=== PATIENT | male | born 1940 | race Caucasian/White ===

== ENCOUNTER → 2019-09-12 10:21 | Outpatient (BNVA) | payer OTHER, SELFPAY | PROVIDERS: Family Provider Internal Medicine; PCP Internal Medicine; Visit Provider Dermatology | DX: B35.1 Tinea unguium (principal); B35.3 Tinea pedis; L57.0 Actinic keratosis; L82.1 Other seborrheic keratosis; Z12.83 Encounter for screening for malignant neoplasm of skin | CPT/HCPCS: 17000; 17003; 99203; 99204 ==

== ENCOUNTER → 2019-10-24 08:52 | Outpatient (BNVA) | payer OTHER, SELFPAY | PROVIDERS: Family Provider Internal Medicine; PCP Internal Medicine; Visit Provider Dermatology | DX: B35.1 Tinea unguium (principal); L27.1 Localized skin eruption due to drugs and medicaments taken internally | CPT/HCPCS: 99213 ==

== ENCOUNTER 2022-02-01 20:31 | Emergency (ER) | payer MEDICARE, SELFPAY ==
[2022-02-01 20:33] VITALS: BP 181/108; PULSE 79; RESP 18; TEMP 37.2; O2SAT 96; BMI 25.0
--- NOTE | 2022-02-01 20:51 | CTR_ITS ---
PROCEDURE INFORMATION: Exam: CT Abdomen And Pelvis Without Contrast Exam date and time: 02/01/2022 10:31 PM Age: 81 years old Clinical indication: Abdominal pain; Prior surgery; Surgery date: 6+ months; Surgery type: Hernia repair; Additional info: Flank pain left TECHNIQUE: Imaging protocol: Computed tomography of the abdomen and pelvis without contrast. Radiation optimization: All CT scans at this facility use at least one of these dose optimization techniques: automated exposure control; mA and/or kV adjustment per patient size (includes targeted exams where dose is matched to clinical indication); or iterative reconstruction. COMPARISON: No relevant prior studies available. RADIATION DOSE METRICS: Total DLP (mGy-cm): 522.61 FINDINGS: Liver: Normal. No mass. Gallbladder and bile ducts: Normal. No calcified stones. No ductal dilation. Pancreas: Normal. No ductal dilation. Spleen: Normal. No splenomegaly. Adrenal glands: Normal. No mass. Kidneys and ureters: There are strandy opacity seen in the perinephric fascia bilaterally that likely represents chronic scarring. Prominent strandy opacities are seen in the right perinephric fascia and superimposed inflammatory changes and pyelonephritis cannot be entirely excluded. There are bilateral hypoattenuation cystic mass seen within the kidneys, the largest is seen in the lateral aspect of the right kidney measuring 2.6 cm. There is hydronephrosis and hydroureter seen on the right with a partially obstructing mid right ureteral calculus present measuring 2.9 mm. Stomach and bowel: Few diverticula are seen on the sigmoid colon. There are no inflammatory changes seen to suggest diverticulitis. Appendix: The appendix is visualized and is normal in configuration. Intraperitoneal space: Unremarkable. No free air. No significant fluid collection. Vasculature: Unremarkable. No abdominal aortic aneurysm. Lymph nodes: Unremarkable. No enlarged lymph nodes. Urinary bladder: Unremarkable as visualized. Reproductive: Unremarkable as visualized. Bones/joints: Unremarkable. No acute fracture. Soft tissues: Small bilateral inguinal hernias are seen containing fat. Bilateral irregular soft tissue attenuation is seen within the properitoneal fat adjacent to the inguinal canals that may represent postoperative scarring. CT/CT kidney stone 54090 IMPRESSION: 1. Partially obstructing 2.9 mm mid right ureteral calculus. 2. Bilateral simple renal cysts, the largest seen on the right measuring 2.6 cm. 3. Normal appendix 4. Mild diverticulosis of the sigmoid colon. 5. Small bilateral inguinal hernias containing fat. Patchy soft tissue attenuation seen in the properitoneal fat adjacent to the little canals possibly representing postoperative scarring. COMMENTS: Consistent with the [employer]'s Incidental Findings Committee white paper (J Am Talisha Radiol 2018): Any incidental renal lesion less than 1 cm or classified as too small to characterize, or any incidental cystic renal lesion characterized as simple-appearing, is likely benign. No follow-up imaging is recommended for these lesions per consensus recommendations based on imaging criteria.
[2022-02-01 21:26] VITALS: BP 191/106; PULSE 71; RESP 18; O2SAT 97
[2022-02-01] MEDS: amlodipine 10 mg Tablet PO (21:30)
[2022-02-01] MEDS: labetalol 5 mg/mL SDV 20mL 10 MG IVP ×2 (21:32→23:11)
[2022-02-01 21:34] LABS: Basophils % 0.1 %; Hematocrit 44.9 % (42.0-52.0); Lymphocytes % 7.6 %; Mean Corpuscular HGB Conc 33.4 g/dL (30.0-36.0); Mean Corpuscular Hemoglobin 31.5 pg (28.0-34.0); Mean Corpuscular Volume 94.3 fl (80-94); Mean Platelet Volume 12.2 fL (7.4-10.4); Monocytes # 0.8 10^3/uL (0.2-0.9); Neutrophils # 11.69 10^3/uL (1.8-7.7); Nucleated Red Blood Cells % 0 %; Platelet Count 180 10^3/cmm (130-400); Red Blood Count 4.76 10^6/uL (4.1-5.3); Red Cell Distribution Width 12.8 % (12.1-15.1); White Blood Count 13.6 10^3/uL (4.0-10.0)
[2022-02-01 21:52] LABS: Alanine Aminotransferase 9 U/L (0-41); Alkaline Phosphatase 80 U/L (40-130); Anion Gap 14.6 (5-19); Aspartate Amino Transferase 16 U/L (0-40); Blood Urea Nitrogen 21 mg/dL (8-23); Calcium 8.7 mg/dL (8.5-10.5); Carbon Dioxide 22 mmol/L (22-29); Chloride 101 mmol/L (98-107); Globulin 2.4 g/dL (1.3-4.6); Glucose 116 mg/dL (65-115); Lipase 12 U/L (13-60); Osmolality Calculated 282 mOsm/kg (285-295); Potassium 3.6 mmol/L (3.5-5.1); Sodium 134 mmol/L (136-145); Total Bilirubin 0.5 mg/dL (0.15-1.2); Total Protein 6.4 g/dL (6.6-8.7)
--- NOTE | 2022-02-01 22:26 | ECG_ITS ---
[facility] Test Date: 2022-02-01 Pat Name: Stuart Horton Department: Room: Gender: Male Client Services Director: : 1940 Requested By: Omer Hendricks Order Number: [id number] Daren MD: Hortencia Capone M.D. Measurements Intervals [place] Rate: 62 P: 16 CA: 136 QRS: 48 QRSD: 82 T: 51 QT: 413 QTc: 421 Interpretive Statements SINUS RHYTHM No previous ECG available for comparison Electronically Signed On 02-02-2022 5:49:25 BOAT FINISHER by Hortencia Capone M.D. [id number]
[2022-02-01] MEDS: enalaprilat 1.25 mg/mL Inj IVP (23:11)
[2022-02-01 23:12] VITALS: BP 189/107; PULSE 69; RESP 18; O2SAT 98
[2022-02-01 23:18] LABS: Add Urine Microscopic? NO; Charge for UA Resulting for Rev
[2022-02-01 23:29] LABS: Urine Appearance Clear (CLEAR); Urine Color Yellow (Yellow); pH Urine 7 (5-7)
[2022-02-01 23:30] LABS: Bilirubin Urine Neg (Negative); Blood Urine Neg (Negative); Glucose Urine UA Norm (Normal); Ketones Urine 2+ (Negative); Leukocyte Esterase Urine Negative (Negative); Nitrate Urine Negative (Negative); Protein Urine Neg (Negative); Urobilinogen Urine Norm (Negative)
[2022-02-02 00:44] VITALS: BP 164/87; PULSE 72; RESP 17; TEMP 36.7; O2SAT 97
--- NOTE | 2022-02-02 14:45 | W.ED.MALEGU ---
HPI - Male Genitourinary General: Chief complaint: Urogenital-Male Stated complaint: LOWER FLANK PAIN Time Seen by Provider: 02/01/22 20:48 Source: patient History of Present Illness: 81 male with right lower back and flank pain that he believes could be a kidney stone. he presented ambulatory and waited in the waiting room for quite some time before going home before seen. after getting home, his pain was somewhat worse. he checked is blood pressure and it was quite high (over 200 systolic), which worried him so a family member called an ambulance. he was given 30mg of IV toradol en route. MD Complaint: other Onset (ago): hour(s) Duration: constant and improved Location: right flank Severity: similar to previous episodes Quality: aching and stabbing Relieving factors: medication Exacerbating factors: none Associated symptoms: Reports nausea; Deny discharge, dysuria, fevers/chills, rash, urinary incontinence or vomiting Review of Systems Const: Denies: fever(s) Card: Denies: chest pain Resp: Denies: dyspnea or non-productive cough GI: Reports: nausea; Denies: vomiting : Reports: flank pain; Denies: dysuria or urinary incontinence Musc: Reports: back pain Skin/Breast: Denies: rash Neuro: Denies: headache(s) PFS ED PFSH: Medical History Neuropathy Family History Other CAD (coronary artery disease) Denies family history of Diabetes Cancer Hypertension Social History Smoking and tobacco status: never smoked Alcohol intake: never History of recent travel: No Physical Exam Const: COMMON NORMALS: no acute distress GENERAL APPEARANCE: cooperative; not ill appearing and not frail appearing HENMT: COMMON NORMALS: normocephalic, atraumatic and Normal external nose present HEAD & SCALP: normocephalic and atraumatic FACE & SINUS: normal facial exam and face symmetric NOSE: Normal external nose present Eye: COMMON NORMALS: Equal, round and reactive pupils present and EOMs intact bilaterally PUPIL: Yes Equal, round and reactive pupils present Neck/C-Spine: GENERAL: Yes trachea midline Chest: CHEST: Yes Symmetrical chest wall rise Resp: COMMON NORMALS: normal respiratory effort, No retractions, No use of accessory muscles and clear to auscultation bilaterally AUSCULTATION: clear to auscultation bilaterally Cardio: COMMON NORMALS: regular rate and regular rhythm RATE: regular rate RHYTHM: regular rhythm GI: COMMON NORMALS: Normal to inspection, nondistended, normoactive bowel sounds present : BLADDER/KIDNEY EXAM: Yes CVA tenderness on the right Back/Pelvis: GENERAL BACK: Yes CVA tenderness Extremity: COMMON NORMALS: no pedal edema Neuro: GOMEZ COMA SCALE: document GCS findings Gomez coma scale eye opening: Spontaneous Gomez coma scale verbal response: Orientated [place] coma scale motor response: Obey commands [place] coma scale total score: 15 SENSORY EXAM: Yes extremities (intact) Psych: COMMON NORMALS: speech normal SPEECH: Yes normal speech Skin: COMMON NORMALS: no rashes or lesions noted GENERAL SKIN EXAM: no rashes or lesions noted Course Vital Signs: Vital signs: Vital Signs Temperature 98.1 F 02/02/22 00:44 Pulse Rate 72 02/02/22 00:44 Respiratory Rate 17 02/02/22 00:44 Blood Pressure 164/87 02/02/22 00:44 Pulse Oximetry 97 02/02/22 00:44 Oxygen Delivery Me thod 02/01/22 23:12 MDM - Male Medical Decision Making pain is nearly resolved after toradol given in the ambulance. he is still quite hypertensive on presentation. he is given labetalol, vasotec and oral amlodipine for control of bp, which is improved. ekg is normal. mild leukocytosis. bmp is not remarkable. CT shows 2.9mm stone mid ureter with hydronephrosis but not completely obstructed. no uti. will allow home with pain medication, flomax which may help the bp as well as amlodipine. strict return precautions given. Lab Data 02/01/22 21:25 02/01/22 21:25 Radiology Impressions Abdomen/Pelvis CT 02/01/22 20:51 IMPRESSION: 1. Partially obstructing 2.9 mm mid right ureteral calculus. 2. Bilateral simple renal cysts, the largest seen on the right measuring 2.6 cm. 3. Normal appendix 4. Mild diverticulosis of the sigmoid colon. 5. Small bilateral inguinal hernias containing fat. Patchy soft tissue attenuation seen in the properitoneal fat adjacent to the little canals possibly representing postoperative scarring. COMMENTS: Consistent with the [employer]'s Incidental Findings Committee white paper (J Am Talisha Radiol 2018): Any incidental renal lesion less than 1 cm or classified as too small to characterize, or any incidental cystic renal lesion characterized as simple-appearing, is likely benign. No follow-up imaging is recommended for these lesions per consensus recommendations based on imaging criteria. Laboratory Results WBC 13.6 10^3/uL (4.0-10.0) H 02/01/22 21: RBC 4.76 10^6/uL (4.1-5.3) 02/01/22 21: Hgb 15.0 g/dL (11.7-16.6) 02/01/22: Hct 44.9 % (42.0-52.0) 02/01/22: MCV 94.3 fl (80-94) H 02/01/22: MCH 31.5 pg (28.0-34.0) 02/01/22: MCHC 33.4 g/dL (30.0-36.0) 02/01/22 21: RDW 12.8 % (12.1-15.1) 02/01/22: Plt Count 180 10^3/cmm (130-400) 02/01/22 21: MPV 12.2 fL (7.4-10.4) H 02/01/22 21: Neut % (Auto) 86.0 % 02/01/22: Lymph % (Auto) 7.6 % 02/01/22: [place] % (Auto) 6.0 % 02/01/22 21: Eos % (Auto) 0.0 % 02/01/22: Baso % (Auto) 0.1 % 02/01/22: Neut # (Auto) 11.69 10^3/uL (1.8-7.7) H 02/01/22 21: Lymph # (Auto) 1.0 10^3/uL (0.8-4.8) 02/01/22 21: [place] # (Auto) 0.8 10^3/uL (0.2-0.9) 02/01/22 21: Eos # (Auto) 0.0 10^3/uL (0.0-0.8) 02/01/22 21:25 Baso # (Auto) 0.0 10^3/uL (0.0-0.1) 02/01/22 21:25 Nucleated RBC % (auto) 0 % 02/01/22 21: Nucleated RBCs # 0.0 /100WBC 02/01/22 21:25 Sodium 134 mmol/L (136-145) L 02/01/22 21:25 Potassium 3.6 mmol/L (3.5-5.1) 02/01/22 21: Chloride 101 mmol/L (98-107) 02/01/22: Carbon Dioxide 22 mmol/L (22-29) 02/01/22: Anion Gap 14.6 (5-19) 02/01/22 21:25 BUN 21 mg/dL (8-23) 02/01/22 21: Creatinine 1.2 mg/dL (0.7-1.2) 02/01/22 21: GFR Calculation Not Reportable 02/01/22 21: Glucose 116 mg/dL (65-115) H 02/01/22 21:25 Calculated Osmolality 282 mOsm/kg (285-295) L 02/01/22: Calcium 8.7 mg/dL (8.5-10.5) 02/01/22 21:25 Total Bilirubin 0.5 mg/dL (0.15-1.2) 02/01/22 21:25 AST 16 U/L (0-40) 02/01/22 21:25 ALT 9 U/L (0-41) 02/01/22 21:25 Alkaline Phosphatase 80 U/L (40-130) 02/01/22 21:25 C-Reactive Protein 3.0 mg/L (0.0-4.9) 02/01/22:25 Total Protein 6.4 g/dL (6.6-8.7) L 02/01/22 21:25 Albumin 4.0 g/dL (3.5-5.2) 02/01/22 21:25 Globulin 2.4 g/dL (1.3-4.6) 02/01/22 21:25 Lipase 12 U/L (13-60) L 02/01/22 21:25 Urine Color Yellow (Yellow) 02/01/22 23:15 Urine Appearance Clear (CLEAR) 02/01/22 23:15 Urine pH 7 (5-7) 02/01/22 23:15 Ur Specific [place] 1.010 (1.005-1.030) 02/01/22 23:15 Urine Protein Neg (Negative) 02/01/22 23:15 Urine Glucose (UA) Norm (Normal) 02/01/22 23:15 Urine Ketones 2+ (Negative) H 02/01/22 23:15 Urine Blood Neg (Negative) 02/01/22 23:15 Urine Nitrate Negative (Negative) 02/01/22 23:15 Urine Bilirubin Neg (Negative) 02/01/22 23:15 Urine Urobilinogen Norm mg/dL (Negative) 02/01/22 23:15 Ur Leukocyte Esterase Negative (Negative) 02/01/22 23:15 Discharge Plan Discharge Patient Disposition: Home Clinical Impression: Ureterolithiasis, Hypertension Condition: Stable Prescriptions: New Flomax 0.4 mg capsule 0.4 mg PO DAILY Qty: 30 0RF amlodipine 10 mg tablet 10 mg PO DAILY Qty: 30 0RF Percocet 7.5-325 mg tablet 1 tab PO Q8H PRN (Reason: pain) Qty: 10 0RF No Action multivitamin Capsule 1 cap PO DAILY ascorbic acid (vitamin C) [Vitamin C] 500 mg capsule, extended release 500 mg PO DAILY ketoconazole 2 % cream 1 applic TOPICAL BID Qty: 60 2RF Rx Instructions: Apply twice daily to entire foot and between the toes for 4 weeks and as needed for flares ciclopirox 8 % solution 1 applic topical DAILY Qty: 6.6 6RF Rx Instructions: Apply to nails daily. Do not wash nails for 8hr post application;remove w/alcohol every 7 days triamcinolone acetonide 0.1 % ointment 1 applic TOPICAL BID Qty: 80 0RF Rx Instructions: Apply twice daily to affected area on left thigh no more than 2 weeks/month Discharge Orders: Discharge ED (Routine); Ordered 02/01/22 Ordered By: Omer Salinas Referrals: Jesus Iqbal MD [Physician] - 4-7 days Scotty Umana DO [Primary Care Provider] - 1-3 days Patient Instructions: Kidney Stones (ED), Hypertension (ED), Opioid Safety, Pain Management Activity Restrictions/Additional Instructions: Check your blood pressure twice daily. Report numbers to your physician. They will want to see you this coming week. Call for an appointment. Pain medication as directed for kidney stone related pain. Take the tamsulosin you were prescribed to help pass the stone, it will help your blood pressure as well. Return for fever, vomiting liquids or medications, worsening pain despite treatment with pain medication, other concerning symptoms. See urology in follow-up. Coding Level of Care Code ED Manager Utilization Management for Sumanth Wolfe
--- NOTE | 2022-02-03 10:53 | DCPLANNER ---
Addendum entered by Autumn Espinoza 02/19/22 13:40: This appointment was cancelled Addendum entered by Autumn Espinoza 02/04/22 10:16: Patient has a follow up appointment scheduled for Friday, February 11, 2022 at 4:[address] Iqbal at urology. Clinic will call patient with appointment information. Original Note: environmental health and safety manager had message to schedule a follow up appointment for patient with urology. environmental health and safety manager sent patients information to the front office staff at urology. patients information will be printed and reviewed. Clinic will call patient with appointment information.
== END 2022-02-02 00:46 | disposition home or self-care (01) ==
PROVIDERS: Emergency Provider Emergency Medicine; PCP Internal Medicine
DX: N20.1 Calculus of ureter (principal); I10 Essential (primary) hypertension
CPT/HCPCS: 74176; 80053; 81003; 83690; 85025; 86140; 93005; 96374; 96375; 96376; 99285; J3490

== ENCOUNTER 2022-02-21 20:33 | Emergency (ER) | payer MEDICARE, SELFPAY ==
[2022-02-21 20:46] VITALS: BP 161/92; PULSE 95; RESP 16; TEMP 36.7; O2SAT 99; BMI 25.7
--- NOTE | 2022-02-21 21:48 | ED_ITS ---
HPI - Male Genitourinary General: Chief complaint: Urogenital-Male Stated complaint: catheter problems Time Seen by Provider: 02/21/22 21:39 Source: patient Mode of arrival: EMS Limitations: no limitations History of Present Illness: See nursing assessment. Patient with complaints of difficulty getting urine out through his Up catheter today. Patient states he was having to force himself to get urine out. However, in route to the hospital by EMS, urine started flowing more freely. States he did pass a blood clot earlier through his Up catheter. Patient had kidney stone removal and placement of indwelling Up catheter yesterday in [place]. His urologist is aware of what is going on today. Patient has an appoint with his urologist on Wednesday in clinic. Patient states he feels much better now. Denies any fever. Denies any flank pain or abdominal pain. Associated symptoms: Reports hematuria; Deny nausea or vomiting Review of Systems Const: Denies: fever(s) or chills Eyes: Denies: change in vision ENMT: Denies: throat pain Card: Denies: chest pain or palpitations Resp: Denies: dyspnea or wheezing GI: Denies: abdominal pain, nausea or vomiting : Reports: hematuria; Denies: flank pain Musc: Denies: neck pain or back pain Skin/Breast: Denies: rash or pruritus Neuro: Denies: headache(s) or numbness in extremities Psych: Denies: anxiety Mike/Lymph: Denies: enlarged lymph nodes [facility] ED PFSH: Medical History Neuropathy Family History Other CAD (coronary artery disease) Denies family history of Diabetes Cancer Hypertension Social History Smoking and tobacco status: never smoked Alcohol intake: never History of recent travel: No Supplemental [facility] Information: Kidney stone removal yesterday. Physical Exam Const: COMMON NORMALS: no acute distress, patient oriented x3, no limitations and well nourished GENERAL APPEARANCE: cooperative HENMT: COMMON NORMALS: normocephalic and atraumatic HEAD & SCALP: normocephalic and atraumatic FACE & SINUS: normal facial exam Eye: COMMON NORMALS: EOMs intact bilaterally Neck/C-Spine: COMMON NORMALS: full ROM, no lymphadenopathy, supple and no meningeal signs GENERAL: Yes normal visual inspection Lymph: LYMPHATIC: no lymphadenopathy noted Chest: COMMONS NORMALS: normal inspection of the chest and normal palpation of entire chest wall CHEST: No Ecchymosis present and No rash Resp: COMMON NORMALS: normal respiratory effort, No retractions and clear to auscultation bilaterally EFFORT & INSPECTION: No respiratory distress AUSCULTATION: clear to auscultation bilaterally Cardio: COMMON NORMALS: regular rate, regular rhythm and Peripheral pulses 2+ throughout JUGULAR VENOUS DISTENTION: no JVD RATE: regular rate RHYTHM: regular rhythm PERIPHERAL PULSES: Peripheral pulses 2+ throughout GI: COMMON NORMALS: Normal to inspection, nondistended, normoactive bowel sounds present and non-tender : OTHER: Up catheter in proper position. Catheter slides and penis without any difficulty. Fairly clear blood-tinged urine in catheter tubing. Good urine output now. Extremity: COMMON NORMALS: normal to inspection, full ROM and capillary refill normal Neuro: COMMON NORMALS: patient oriented x3, CN's II-XII intact bilaterally, no focal motor deficits and no sensory deficits noted MENINGEAL SIGNS: Yes no meningeal signs Psych: COMMON NORMALS: mental status grossly normal and Normal thought process present THOUGHT PROCESS: Normal thought process present Skin: COMMON NORMALS: no rashes or lesions noted and no wounds GENERAL SKIN EXAM: no rashes or lesions noted Course Vital Signs: Vital signs: Vital Signs Temperature 98.0 F 02/21/22 20:46 Pulse Rate 95 02/21/22 20:46 Respiratory Rate 16 02/21/22 20:46 Blood Pressure 161/92 02/21/22 20:46 Pulse Oximetry 99 02/21/22 20:46 Oxygen Delivery Me thod 02/21/22 20:46 MDM - Male Medical Decision Making Blood clots occluding proximal Up catheter Nurse will flush catheter again here. Catheter appears to be functioning well now. Patient states the anchor to the Up catheter was in a strange position and he took it off yesterday. He is not sure if the absence of the anchor or th e position of the anchor made the situation worse. He is requesting that the anchor be replaced today. Nurse stated that the catheter did not flush well. He stated the patient needs his catheter replaced. Patient is okay with catheter replacement. Discharge Plan Discharge Patient Disposition: Home Clinical Impression: Up catheter problem Qualifiers: Encounter type: initial encounter Qualified Code(s): T83.9XXA - Unspecified com plication of genitourinary prosthetic device, implant and graft, initial encounter Condition: Stable Prescriptions: No Action multivitamin Capsule 1 cap PO DAILY ascorbic acid (vitamin C) [Vitamin C] 500 mg capsule, extended release 500 mg PO DAILY ketoconazole 2 % cream 1 applic TOPICAL BID Qty: 60 2RF Rx Instructions: Apply twice daily to entire foot and between the toes for 4 weeks and as needed for flares ciclopirox 8 % solution 1 applic topical DAILY Qty: 6.6 6RF Rx Instructions: Apply to nails daily. Do not wash nails for 8hr post application;remove w/alcohol every 7 days triamcinolone acetonide 0.1 % ointment 1 applic TOPICAL BID Qty: 80 0RF Rx Instructions: Apply twice daily to affected area on left thigh no more than 2 weeks/month Flomax 0.4 mg capsule 0.4 mg PO DAILY Qty: 30 0RF amlodipine 10 mg tablet 10 mg PO DAILY Qty: 30 0RF Percocet 7.5-325 mg tablet 1 tab PO Q8H PRN (Reason: pain) Qty: 10 0RF Discharge Orders: Discharge ED (Routine); Ordered 02/21/22 Ordered By: Al Silva Referrals: Scotty Umana DO [Primary Care Provider] - Discharge Activity: Increase activity as tolerated Patient Instructions: Up Catheter Care, Opioid Safety, Pain Management Activity Restrictions/Additional Instructions: Drink plenty water to keep the catheter flushed out. Follow-up with urologist next week as scheduled. Coding Level of Care Code ED Title I Assistant for Sumanth Wolfe History Comprehensive Exam Comprehensive Medical Decision Making Moderate Complexity
--- NOTE | 2022-02-21 22:42 | PC.NURSE ---
Pt.'s existing catheter not draining properly. Catheter removed. Inside the tip of the catheter was a long strand of tissue with a small clot , blocking the tube.
== END 2022-02-21 22:47 | disposition home or self-care (01) ==
PROVIDERS: Emergency Provider Family Medicine; PCP Internal Medicine
DX: T83.9XXA Unspecified complication of genitourinary prosthetic device, implant and graft, initial encounter (principal); Y73.8 Miscellaneous gastroenterology and urology devices associated with adverse incidents, not elsewhere classified
CPT/HCPCS: 51702; 99283

== ENCOUNTER → 2022-08-06 13:41 | Outpatient (BNVA) | payer MEDICARE, SELFPAY | PROVIDERS: PCP Internal Medicine; Visit Provider Dermatology | DX: B35.1 Tinea unguium (principal); L57.0 Actinic keratosis; L82.1 Other seborrheic keratosis; D18.01 Hemangioma of skin and subcutaneous tissue | CPT/HCPCS: 17000; 17003; 99213 ==

== ENCOUNTER 2023-02-17 18:31 | Inpatient (IN) | payer MEDICARE, SELFPAY ==
[2023-02-17 18:36] VITALS: BP 162/84; PULSE 74; RESP 18; TEMP 36.7; O2SAT 96; BMI 27.4
[2023-02-17 18:44] VITALS: BP 162/84; PULSE 74; RESP 18; O2SAT 96
--- NOTE | 2023-02-17 18:44 | CTR_ITS ---
PROCEDURE INFORMATION: Exam: CT Head Without Contrast Exam date and time: 02/17/2023 6:52 PM Age: 82 years old Clinical indication: Altered mental status/memory loss; Additional info: AMS TECHNIQUE: Imaging protocol: Computed tomography of the head without contrast. Radiation optimization: All CT scans at this facility use at least one of these dose optimization techniques: automated exposure control; mA and/or kV adjustment per patient size (includes targeted exams where dose is matched to clinical indication); or iterative reconstruction. COMPARISON: No relevant prior studies available. RADIATION DOSE METRICS: Total DLP (mGy-cm): 1170 FINDINGS: Brain: Moderate diffuse white matter disease likely reflecting chronic microvascular ischemic changes. Cerebral ventricles: No ventriculomegaly. Paranasal sinuses: Visualized sinuses are unremarkable. No fluid levels. Mastoid air cells: Visualized mastoid air cells are well aerated. Bones/joints: Unremarkable. No acute fracture. Soft tissues: Unremarkable. CT/CT head wo con* [id number] IMPRESSION: Negative for intracranial hemorrhage or mass effect.
--- NOTE | 2023-02-17 18:46 | ED_ITS ---
HPI - Skin/Abscess/Foreign Bdy 2 General: Chief complaint: ER Hold Stated complaint: AMS Time Seen by Provider: 02/17/23 18:36 History of Present Illness: 82-year-old male presents emergency depa rtment via EMS personnel with complaints of change in mental status. He was seen here yesterday and this emergency department and was evaluated with laboratory and discharged home at the request of the patient. He returns today with increased confusion he was recently started on Augmentin by his primary care provider and is now taken 5 to 6 days of the Augmentin antibiotic regimen. The family members state that he developed a rash and worsening mental status changes. He does intermittently answer questions appropriately. The family member states that he is not his normal self. He denies chest pain or shortness of breath. He did receive evaluation yesterday in the emergency department to include chest x-ray, influenza screen, COVID screen, strep screen, and a monotest which were all negative. His urinalysis yesterday was negative for infection at that time. Blood cultures were also obtained on his ER visit on 02/16/23. Review of Systems 2 General: Reports: 10 or more systems reviewed and unremarkable except in HPI and below Skin/Breast: Reports: rash Neuro: Reports: confusion PFSH ED 2 PFSH: Medical History Neuropathy Family History Other CAD (coronary artery disease) Denies family history of Diabetes Cancer Hypertension Social History Smoking and tobacco/nicotine status: never used tobacco/nicotine Alcohol intake: never Substance/Drug Use: never Physical Exam 2 Narrative: EXAM NARRATIVE: Constitutional: the patient appears well nourished and with normal development. Vital signs reviewed as documented. GCS 15 HENMT: Normocephalic, atraumatic. Extermal ears with normal appearance without drainage. Nose without drainage, normal appearance. Mucus membranes moist. Neck is supple, No jugular venous distension, trachea is midline, no appreciable carotid bruits. No lymphadenopathy. No meningeal signs. Flexion, extension and lateral rotation is without pain. Eyes: Pupils are equal, round, reactive to light and accommodation. No scleral icterus. Extra-ocular movement are intact. Thorax is symmetrical and with equal rise and fall with respirations. Resp: Lungs are clear to auscultation. No wheezes, rales, crackles or ronchi at present. Cardio: Regular rate and rhythm. Positive S1, S2. No appreciable murmurs, rubs or gallops. GI: Abdominal exam reveals normal bowel sounds to all quadrants. No organomegaly. No obvious palpable masses noted. No hepatomegally appreciated. Soft, nontender to palpation. Extremity: Extremities are non-edematous and both femoral and pedal pulses are 2+ and equal bilaterally. Moves all extremities well, sensation in all extremities. Neuro: Alert and oriented x4, person, place, time and situation. Cranial nerves II through XII are grossly intact, there is no focal neurological deficits that I can appreciate at present. His mentation does appear to be slightly delayed and when asked complex 2 and three-step questions he has difficulty answering. Motor strength in the upper and lower extremities are equal and bilateral 5/5. Psych: Cooperative, calm, normal thought process, appropriate judgment. Skin: No lesions, generalized erythematous rash to his entire body. N Back: Symmetrical, no obvious deformity, No CVA tenderness Course 2 Vital Signs: Vital signs: Vital Signs Temperature 98.1 F 02/17/23 18:36 Pulse Rate 77 02/17/23 19:27 Respiratory Rate 18 02/17/23 18:44 Blood Pressure 178/94 02/17/23 19:27 Pulse Oximetry 97 02/17/23 19:27 Oxygen Delivery Me thod Room Air 02/17/23 18:44 MDM - Skin/Abscess/Foreign Bdy Medicial Decision Making Physical exam completed and documented I will obtain repeat labs to include a CBC and CMP as well as a CT scan of the head given his altered mental status I reviewed the previous medical records for this patient I am concerned given his continued mental status changes and we will rule out infectious processes versus neurological complications to include cephalopathy, intracranial hemorrhage, ischemic event. Medical Records I reviewed the patient's medical records. Lab Data I reviewed the patient's lab results. 02/17/23 18:44 02/17/23 18:[address] 02/17/23 18:44 IMPRESSION: Negative for intracranial hemorrhage or mass effect. Head/Neck CTA 02/17/23 19:22 IMPRESSION: 1. No large vessel high-grade stenosis or occlusion. 2. Advanced diffuse vascular calcification noted, especially in both distal ICAs. IMPRESSION: No stenosis or occlusion. REFERENCES: NASCET CRITERIA. The degree of stenosis in the cervical segment of the internal carotid artery is based on NASCET criteria. Normal is no stenosis. Mild is less than 50% stenosis. Moderate is 50-69% stenosis. Severe is 70% to 99% stenosis. Total occlusion is no detectable patent lumen. Laboratory Results WBC 9.95 10^3/uL (3.29-11.43) 02/17/23 18:44 RBC 4.51 10^6/uL (3.85-5.65) 02/17/23 18:44 Hgb 14.30 g/dL (11.27-16.99) 02/17/23 18:44 Hct 42.2 % (37-53) 02/17/23 18:44 MCV 93.6 fl (82-101) 02/17/23 18:44 MCH 31.7 pg (27-33) 02/17/23 18:44 MCHC 33.9 g/dL (30-55) 02/17/23 18:44 RDW 13.2 % (12.1-15.1) 02/17/23 18:44 Plt Count 165 10^3/cmm (157-399) 02/17/23 18:44 MPV 11.9 fL (7.4-10.4) H 02/17/23 18:44 Neut % (Auto) 70.9 % 02/17/23 18:44 Lymph % (Auto) 13.7 % 02/17/23 18:44 Cocke % (Auto) 11.1 % 02/17/23 18:44 Eos % (Auto) 3.6 % 02/17/23 18:44 Baso % (Auto) 0.4 % 02/17/23 18:44 Neut # (Auto) 7.06 10^3/uL (1.8-7.7) 02/17/23 18:44 Lymph # (Auto) 1.4 10^3/uL (0.8-4.8) 02/17/23 18:44 Cocke # (Auto) 1.1 10^3/uL (0.2-0.9) H 02/17/23 18:44 Eos # (Auto) 0.4 10^3/uL (0.0-0.8) 02/17/23 18:44 Baso # (Auto) 0.0 10^3/uL (0.0-0.1) 02/17/23 18:44 Nucleated RBC % (auto) 0 % 02/17/23 18:44 Nucleated RBCs # 0.0 /100WBC 02/17/23 18:44 ESR 15 mm/hr (0-10) H 02/17/23 18:44 Sodium 140 mmol/L (136-145) 02/17/23 18:44 Potassium 3.8 mmol/L (3.5-5.1) 02/17/23 18:44 Chloride 105 mmol/L (98-107) 02/17/23 18:44 Carbon Dioxide 23 mmol/L (22-29) 02/17/23 18:44 Anion Gap 15.8 (5-19) 02/17/23 18:44 BUN 17 mg/dL (8-23) 02/17/23 18:44 Creatinine 0.8 mg/dL (0.7-1.2) 02/17/23 18:44 GFR Calculation Not Reportable 02/17/23 18:44 Glucose 87 mg/dL (65-115) 02/17/23 18:44 Calculated Osmolality 291 mOsm/kg (285-295) 02/17/23 18:44 Lactic Acid 1.1 mmol/L (0.5-2.2) 02/17/23 18:44 Calcium 8.4 mg/dL (8.5-10.5) L 02/17/23 18:44 Total Bilirubin 0.6 mg/dL (0.15-1.2) 02/17/23 18:44 AST 18 U/L (0-40) 02/17/23 18:44 ALT 19 U/L (0-41) 02/17/23 18:44 Alkaline Phosphatase 63 U/L (40-130) 02/17/23 18:44 C-Reactive Protein 59.4 mg/L (0.0-4.9) H 02/17/23 18:44 Total Protein 6.4 g/dL (6.6-8.7) L 02/17/23 18:44 Albumin 3.6 g/dL (3.5-5.2) 02/17/23 18:44 Globulin 2.8 g/dL (1.3-4.6) 02/17/23 18:44 Procalcitonin 0.19 ng/mL (0-0.5) 02/17/23 18:44 Urine Color Yellow (Yellow) 02/17/23 21:00 Urine Appearance Clear (CLEAR) 02/17/23 21:00 Urine pH 5 (5-7) 02/17/23 21:00 Ur Specific [place] 1.020 (1.005-1.030) 02/17/23 21:00 Urine Protein Neg (Negative) 02/17/23 21:00 Urine Glucose (UA) Norm (Normal) 02/17/23 21:00 Urine Ketones 2+ (Negative) H 02/17/23 21:00 Urine Blood 2+ (Negative) H 02/17/23 21:00 Urine Nitrate Negative (Negative) 02/17/23 21:00 Urine Bilirubin Neg (Negative) 02/17/23 21:00 Urine Urobilinogen Neg mg/dL (Negative) 02/17/23 21:00 Ur Leukocyte Esterase Negative (Negative) 02/17/23 21:00 Urine RBC 0-4 /hpf (0-2) H 02/17/23 21:00 Urine WBC None /hpf (0-5) 02/17/23 21:00 Ur Squamous Epith Cells None /hpf (0-5) 02/17/23 21:00 Amorphous Sediment Not Reportable 02/17/23 21:00 Urine Bacteria Trace /hpf (NONE) 02/17/23 21:00 Urine Mucus 2+ /hpf 02/17/23 21:00 All radiology interpretation(s) finalized by discharge Critical Care Time 2 Critical Care Time: Critical Care Time: Yes Total Critical Care Time: 70 Attestation: The patients was emergently evaluated as this patient's presentation and case had a high probability of a clinically significant, sudden, or life threatening deterioration of this patient's initial critical presentation or condition which required my full and direct attention, intervention and personal management. Discharge Plan Discharge Patient Disposition: Placed in Observation Admit Provider: Christi Thompson Clinical Impression: Encephalopathy Altered mental status Qualifiers: Altered mental status type: disorientation Qualified Code(s): R41.0 - Disorientation, unspecified Coding Level of Care Code ED Head Of Maintenance for Sumanth Wolfe
[2023-02-17 18:52] LABS: Basophils % 0.4 %; Eosinophils # 0.4 10^3/uL (0.0-0.8); Eosinophils % 3.6 %; Hematocrit 42.2 % (37-53); Lymphocytes # 1.4 10^3/uL (0.8-4.8); Lymphocytes % 13.7 %; Mean Corpuscular HGB Conc 33.9 g/dL (30-55); Mean Corpuscular Hemoglobin 31.7 pg (27-33); Mean Corpuscular Volume 93.6 fl (82-101); Mean Platelet Volume 11.9 fL (7.4-10.4); Monocytes # 1.1 10^3/uL (0.2-0.9); Monocytes % 11.1 %; Neutrophils # 7.06 10^3/uL (1.8-7.7); Neutrophils % 70.9 %; Nucleated Red Blood Cells % 0 %; Platelet Count 165 10^3/cmm (157-399); Red Blood Count 4.51 10^6/uL (3.85-5.65); Red Cell Distribution Width 13.2 % (12.1-15.1); White Blood Count 9.95 10^3/uL (3.29-11.43)
[2023-02-17 19:19] LABS: Alanine Aminotransferase 19 U/L (0-41); Albumin Level 3.6 g/dL (3.5-5.2); Alkaline Phosphatase 63 U/L (40-130); Aspartate Amino Transferase 18 U/L (0-40); Blood Urea Nitrogen 17 mg/dL (8-23); Calcium 8.4 mg/dL (8.5-10.5); Carbon Dioxide 23 mmol/L (22-29); Chloride 105 mmol/L (98-107); Globulin 2.8 g/dL (1.3-4.6); Glucose 87 mg/dL (65-115); Osmolality Calculated 291 mOsm/kg (285-295); Sodium 140 mmol/L (136-145); Total Bilirubin 0.6 mg/dL (0.15-1.2); Total Protein 6.4 g/dL (6.6-8.7)
[2023-02-17 19:20] LABS: Lactic Sepsis W/Reflex 1.1 mmol/L (0.5-2.2)
--- NOTE | 2023-02-17 19:22 | CTR_ITS ---
PROCEDURE INFORMATION: Exam: CTA Head With Contrast, Arteriography Exam date and time: 02/17/2023 8:38 PM Age: 82 years old Clinical indication: Other: AMS TECHNIQUE: Imaging protocol: Computed tomographic angiography of the head with contrast. Exam focused on the arteries. 3D rendering (Not supervised by radiologist): MIP and/or 3D reconstructed images were created by the technologist. Radiation optimization: All CT scans at this facility use at least one of these dose optimization techniques: automated exposure control; mA and/or kV adjustment per patient size (includes targeted exams where dose is matched to clinical indication); or iterative reconstruction. Contrast material: OMNI 350; Contrast volume: 100 ml; Contrast route: INTRAVENOUS (IV); COMPARISON: CT head wo con* [id number] 02/17/2023 6:52 PM RADIATION DOSE METRICS: Total DLP (mGy-cm): 482 FINDINGS: ANTERIOR CIRCULATION: Right internal carotid artery: Intracranial segment is patent with no significant stenosis. No aneurysm. Moderate cavernous calcified plaque. Right middle cerebral artery: No occlusion or significant stenosis. No aneurysm. Right anterior cerebral artery: No occlusion or significant stenosis. No aneurysm. Left internal carotid artery: Intracranial segment is patent with no occlusion. No aneurysm. Moderate cavernous and extensive ICA terminus calcified plaque. Left middle cerebral artery: No occlusion or significant stenosis. No aneurysm. Left anterior cerebral artery: No occlusion or significant stenosis. No aneurysm. POSTERIOR CIRCULATION: Right vertebral artery: No occlusion or significant stenosis. No aneurysm. Left vertebral artery: No occlusion or significant stenosis. No aneurysm. Basilar artery: No occlusion or significant stenosis. No aneurysm. Right posterior cerebral artery: No occlusion or significant stenosis. No aneurysm. Left posterior cerebral artery: No occlusion or significant stenosis. No aneurysm. Brain: No focal hemorrhage or midline shift identified. Cerebral ventricles: No evidence of ventriculomegaly or hydrocephalus. The ventricles seem age-appropriate. Bones/joints: Unremarkable. No acute fracture. Soft tissues: Unremarkable. PROCEDURE INFORMATION: Exam: CTA Neck With Contrast Exam date and time: 02/17/2023 8:38 PM Age: 82 years old Clinical indication: Other: AMS TECHNIQUE: Imaging protocol: Computed tomographic angiography of the neck with contrast. Exam focused on the cervical segments of the vasculature. 3D rendering (Not supervised by radiologist): MIP and/or 3D reconstructed images were created by the technologist. Radiation optimization: All CT scans at this facility use at least one of these dose optimization techniques: automated exposure control; mA and/or kV adjustment per patient size (includes targeted exams where dose is matched to clinical indication); or iterative reconstruction. Contrast material: OMNI 350; Contrast volume: 100 ml; Contrast route: INTRAVENOUS (IV); COMPARISON: CT head wo con* [id number] 02/17/2023 6:52 PM RADIATION DOSE METRICS: Total DLP (mGy-cm): 482 FINDINGS: Right common carotid artery: No stenosis. No dissection or occlusion. Right internal carotid artery: No stenosis of the extracranial segment. No dissection or occlusion. Right external carotid artery: No occlusion or high-grade stenosis identififed. Left common carotid artery: No stenosis. No dissection or occlusion. Left internal carotid artery: No stenosis of the extracranial segment. No dissection or occlusion. Left external carotid artery: No occlusion or high-grade stenosis identififed. Right vertebral artery: No stenosis. No dissection or occlusion. Left vertebral artery: No stenosis. No dissection or occlusion. Soft tissues: No significant soft tissue swelling or other acute finding noted. Bones/joints: No acute fracture. At least moderate diffuse cervical degenerative change. CT/CT angio headneck* [id number] IMPRESSION: 1. No large vessel high-grade stenosis or occlusion. 2. Advanced diffuse vascular calcification noted, especially in both distal ICAs. IMPRESSION: No stenosis or occlusion. REFERENCES: NASCET CRITERIA. The degree of stenosis in the cervical segment of the internal carotid artery is based on NASCET criteria. Normal is no stenosis. Mild is less than 50% stenosis. Moderate is 50-69% stenosis. Severe is 70% to 99% stenosis. Total occlusion is no detectable patent lumen.
[2023-02-17 19:26] LABS: Procalcitonin 0.19 ng/mL (0-0.5)
[2023-02-17 19:27] VITALS: BP 178/94; PULSE 77; O2SAT 97
[2023-02-17 19:35] LABS: Anion Gap 15.8 (5-19); Potassium 3.8 mmol/L (3.5-5.1)
[2023-02-17 20:01] LABS: Erythrocyte Sedimentation Rate 15 mm/hr (0-10)
[2023-02-17 20:07] LABS: C Reactive Protein 59.4 mg/L (0.0-4.9)
[2023-02-17] MEDS: iohexol 350 mg/mL 500 mL Btl (per mL) IV (20:41)
[2023-02-17 21:12] LABS: Urine Appearance Clear (CLEAR); Urine Color Yellow (Yellow)
[2023-02-17 21:13] LABS: Add Urine Culture? No; Add Urine Microscopic? YES; Bacteria Urine TRACE /hpf; Bilirubin Urine Neg (Negative); Blood Urine 2+ (Negative); Glucose Urine UA Norm (Normal); Ketones Urine 2+ (Negative); Leukocyte Esterase Urine Negative (Negative); Mucus Urine 2+ /hpf; Nitrate Urine Negative (Negative); Protein Urine Neg (Negative); RBC Urine 0-4 /hpf (0-2); Urobilinogen Urine Neg (Negative); pH Urine 5 (5-7)
--- NOTE | 2023-02-17 22:34 | PC.NURSE ---
upon rounding, pt has taken off all monitoring equipment (cardiac, pulse ox, bp). pt and family were educated on the importance of needing monitoring and pt refused.
[2023-02-18] VITALS (19 sets, daily range): BP systolic 110–163; BP diastolic 65–90; PULSE 86–102; RESP 16–22; TEMP 36.7–38.7; O2SAT 92–98; BMI 27.9
[2023-02-18] MEDS: haloperidol inj 5 mg/mL INJ 1 mL IVP (01:07)
--- NOTE | 2023-02-18 03:12 | FL_ITS ---
WS: [id number] LUMBAR PUNCTURE UNDER FLUOROSCOPY: OBTAIN CSF FOR ANALYSIS HISTORY: suspected meningitis COMPARISON: None available. FLUOROSCOPY TIME: 1min [id number] # of spot films: 2 Procedure, complications, and risk and benefits explained to the patient's family via phone. A family member was present in the room during this consent and during the procedure. Consent was obtained. R ecent laboratory work and medication are reviewed prior to procedure. Skin over the lumbar is cleansed with ChloraPrep and anesthetized with 1% buffered lidocaine. Access into the thecal sac is achieved. CSF is removed in a sterile manner and placed in the sterile tubes. Approximately 3 ml removed. Patient was very uncooperative and confused during the examination and wo uld not remain still despite multiple attempts. Access of the CSF was lost. As patient was unable to remain still or become cooperative I did not attempt to replace the needle as the patient was at risk for injury. CSF this into the laboratory for analysis as requested. IMPRESSION: 1. Patient was very uncooperative during this examination and access into the CSF was lost after edwige ving approximately 3 cc of fluid. The CSF was clear. 2. Did not attempt repositioning the needle after access was lost due to patient's lack of cooperatio n.
--- NOTE | 2023-02-18 03:19 | P.HP_ITS ---
Providers/Chief Complaint 2 Admitting Physician: Christi Thompson MD Primary Care Provider: Scotty Umana DO Chief Complaint: AMS History of Present Illness Stuart Horton is a 82 year old male without significant known comorbidities except nephrolithiasis has brought to the emergency room by his family due to altered mental status. Per his family patient has been feeling poorly since around [place]. He described feeling fatigued, had some URI type symptoms with nasal congestion runny nose etc. Since Wednesday his fever curve started to get worse, he was started on Augmentin as an outpatient but that led to a diffuse maculopapular rash and eventually was discontinued yesterday. Patient presented to the emergency room on February 16, 2023 with new changes of altered mental status. On the night patient was having trouble communicating and trouble finding words. He had no focal deficits. He had a Tmax of 100.7 Fahrenheit and was tachycardic. Overall impression was that of encephalopathy with fever. Patient elected to return home yesterday. Today his mental status continued to deteriorate and he was brought back by family. At this time patient is confused. He is unable to answer any questions. He is agitated, keeps trying to get out of bed, he is mumbling words without context. Unable to tell me his name age date of or follow simple commands. He is moving all extremities while laying in bed, states that he wants to get out of here. Per family there is no history of chest pain abdominal pain nausea vomiting or diarrhea. They have not noticed any ear pain or discharge. No recent history of dental work. Patient traveled to [place] in January. Stays indoors mostly. No outside activities. He is around his family members cats and dogs, no history of animal bites or scratches recently. No other exotic pets. He has no known history of dementia or other cognitive decline. Review of Systems 2 General: Reports: ROS unobtainable due to mental status Medications/Allergies Home Medications Medication Instructions Recorded Confirmed Last Taken Type acetaminophen 500 mg tablet 500 mg PO Q6H 5 days #20 tabs 02/16/23 Unknown Rx (Acetaminophen Extra Strength) amoxicillin 875 mg-potassium 1 tab PO BID 02/16/23 02/16/23 02/15/23 History clavulanate 125 mg tablet ibuprofen 600 mg tablet 600 mg PO Q6H 5 days #20 tabs 02/16/23 Unknown Rx Allergies Allergy/AdvReac Type Severity Reaction Status Date / Time No Known Allergies Allergy Verified 02/17/23 18:40 PFSH Acute 2 PFSH: Medical History Neuropathy Family History Other CAD (coronary artery disease) Denies family history of Diabetes Cancer Hypertension Social History Smoking and tobacco/nicotine status: never used tobacco/nicotine Alcohol intake: never Substance/Drug Use: never Vitals/I&O/Wt Last Vital Signs Temp 98.1 F 02/17/23 18:36 Pulse 94 02/18/23 01:07 Resp 18 02/18/23 03:04 BP 178/94 02/17/23 19:27 Pulse Ox 98 02/18/23 01:07 O2 Del Method Room Air 02/18/23 01:07 Weight last 48 hrs Weight 77.111 kg Physical Exam 2 Narrative: General: Confused, attempting to get out of bed, AO x1 HEENT: PERRLA, pupils bilaterally equal and reactive, pallors not present Chest: Normal vesicular breath sounds, no added sounds, equal good air entry bilaterally CVS: S1-S2 regular, no murmurs, no tachycardia, no gallops, no rubs Abdomen: Soft, nontender, no organomegaly, bowel sounds present Neuro: No focal deficits, no facial deformity, AO x1, power 5/5 in all limbs, moves all extremities spontaneously but not following any commands Data 02/17/23 18:44 02/17/23 18:44 Other Labs: Radiology Impressions Head CT 02/17/23 18:44 IMPRESSION: Negative for intracranial hemorrhage or mass effect. Head/Neck CTA 02/17/23 19:22 IMPRESSION: 1. No large vessel high-grade stenosis or occlusion. 2. Advanced diffuse vascular calcification noted, especially in both distal ICAs. IMPRESSION: No stenosis or occlusion. REFERENCES: NASCET CRITERIA. The degree of stenosis in the cervical segment of the internal carotid artery is based on NASCET criteria. Normal is no stenosis. Mild is less than 50% stenosis. Moderate is 50-69% stenosis. Severe is 70% to 99% stenosis. Total occlusion is no detectable patent lumen. Laboratory Results WBC 9.95 10^3/uL (3.29-11.43) 02/17/23 18:44 RBC 4.51 10^6/uL (3.85-5.65) 02/17/23 18:44 Hgb 14.30 g/dL (11.27-16.99) 02/17/23 18:44 Hct 42.2 % (37-53) 02/17/23 18:44 MCV 93.6 fl (82-101) 02/17/23 18:44 MCH 31.7 pg (27-33) 02/17/23 18:44 MCHC 33.9 g/dL (30-55) 02/17/23 18:44 RDW 13.2 % (12.1-15.1) 02/17/23 18:44 Plt Count 165 10^3/cmm (157-399) 02/17/23 18:44 MPV 11.9 fL (7.4-10.4) H 02/17/23 18:44 Neut % (Auto) 70.9 % 02/17/23 18:44 Lymph % (Auto) 13.7 % 02/17/23 18:44 [place]kinson % (Auto) 11.1 % 02/17/23 18:44 Eos % (Auto) 3.6 % 02/17/23 18:44 Baso % (Auto) 0.4 % 02/17/23 18:44 Neut # (Auto) 7.06 10^3/uL (1.8-7.7) 02/17/23 18:44 Lymph # (Auto) 1.4 10^3/uL (0.8-4.8) 02/17/23 18:44 [place]kinson # (Auto) 1.1 10^3/uL (0.2-0.9) H 02/17/23 18:44 Eos # (Auto) 0.4 10^3/uL (0.0-0.8) 02/17/23 18:44 Baso # (Auto) 0.0 10^3/uL (0.0-0.1) 02/17/23 18:44 Nucleated RBC % (auto) 0 % 02/17/23 18:44 Nucleated RBCs # 0.0 /100WBC 02/17/23 18:44 ESR 15 mm/hr (0-10) H 02/17/23 18:44 Sodium 140 mmol/L (136-145) 02/17/23 18:44 Potassium 3.8 mmol/L (3.5-5.1) 02/17/23 18:44 Chloride 105 mmol/L (98-107) 02/17/23 18:44 Carbon Dioxide 23 mmol/L (22-29) 02/17/23 18:44 Anion Gap 15.8 (5-19) 02/17/23 18:44 BUN 17 mg/dL (8-23) 02/17/23 18:44 Creatinine 0.8 mg/dL (0.7-1.2) 02/17/23 18:44 GFR Calculation Not Reportable 02/17/23 18:44 Glucose 87 mg/dL (65-115) 02/17/23 18:44 Calculated Osmolality 291 mOsm/kg (285-295) 02/17/23 18:44 Lactic Acid 1.1 mmol/L (0.5-2.2) 02/17/23 18:44 Calcium 8.4 mg/dL (8.5-10.5) L 02/17/23 18:44 Total Bilirubin 0.6 mg/dL (0.15-1.2) 02/17/23 18:44 AST 18 U/L (0-40) 02/17/23 18:44 ALT 19 U/L (0-41) 02/17/23 18:44 Alkaline Phosphatase 63 U/L (40-130) 02/17/23 18:44 C-Reactive Protein 59.4 mg/L (0.0-4.9) H 02/17/23 18:44 Total Protein 6.4 g/dL (6.6-8.7) L 02/17/23 18:44 Albumin 3.6 g/dL (3.5-5.2) 02/17/23 18:44 Globulin 2.8 g/dL (1.3-4.6) 02/17/23 18:44 Procalcitonin 0.19 ng/mL (0-0.5) 02/17/23 18:44 Urine Color Yellow (Yellow) 02/17/23 21:00 Urine Appearance Clear (CLEAR) 02/17/23 21:00 Urine pH 5 (5-7) 02/17/23 21:00 Ur Specific [place] 1.020 (1.005-1.030) 02/17/23 21:00 Urine Protein Neg (Negative) 02/17/23 21:00 Urine Glucose (UA) Norm (Normal) 02/17/23 21:00 Urine Ketones 2+ (Negative) H 02/17/23 21:00 Urine Blood 2+ (Negative) H 02/17/23 21:00 Urine Nitrate Negative (Negative) 02/17/23 21:00 Urine Bilirubin Neg (Negative) 02/17/23 21:00 Urine Urobilinogen Neg mg/dL (Negative) 02/17/23 21:00 Ur Leukocyte Esterase Negative (Negative) 02/17/23 21:00 Urine RBC 0-4 /hpf (0-2) H 02/17/23 21:00 Urine WBC None /hpf (0-5) 02/17/23 21:00 Ur Squamous Epith Cells None /hpf (0-5) 02/17/23 21:00 Amorphous Sediment Not Reportable 02/17/23 21:00 Urine Bacteria Trace /hpf (NONE) 02/17/23 21:00 Urine Mucus 2+ /hpf 02/17/23 21:00 Micro: Blood culture February 16, 2023: Pending A&P Assessment and plan (1) Altered mental status: Qualifiers: Altered mental status type: disorientation Qualified Code(s): R41.0 - Disorientation, unspecified (2) Fever: Plan 82-year-old without significant known medical comorbidities presenting with about 2 weeks of URI type symptoms however with worsening fever curve since Wednesday (today is Wednesday) and development of altered mental status over the last 2 days. Patient noted to have a diffuse maculopapular rash all over his body. Per family this started after Wednesday, may be potentially related to use of Augmentin as outpatient, though he does not have any past reported history of penicillin allergy. With fever and altered mental status with recent history of upper respiratory and symptoms, meningitis would need to be considered Requested fluoroscopic LP, however cannot be performed until tomorrow morning. Start patient on empiric antibiotic coverage including meningitis coverage with meropenem, vancomycin and acyclovir. Additional ampicillin not needed as meropenem would cover for potential Listeria. Can likely narrow down antibiotics if LP is reassuring. CSF glucose, protein, culture, cryptococcal antigen, HSV DNA ordered. Check TSH Check blood culture, thus far from February 16, 2023 blood cultures are negative to date. Chest x-ray from February 16, 2023 without any consolidation. UA unremarkable CT of the chest abdomen and pelvis for fever source evaluation. Is a past history of nephrolithiasis and pyelonephritis, though this is considered less likely at this time given lack of any abdominal pain discomfort, no reported dysuria recently and with normal UA. DVT prophylaxis: Holding off on prophylaxis until LP can be obtained Full code Attestations 2 Medical Necessity Statement*: Greater than 2 midnight admission is anticipated for evaluation of fever and altered mental status. Coding Level of Care Code Acute Code for Chg Fwd High MDM includes number and complexity of problems actively addressed during encounter, amount and/or complexity of data reviewed/ordered and described risk of complication, morbidity or mortality of management as documented Diagnoses Altered mental status R41.0 Altered mental status type: disorientation Fever R50.9
[2023-02-18] MEDS: LORazepam 2 mg/mL INJ 10 mL MDV 0.5 MG IV (04:05)
[2023-02-18 04:14] LABS: Troponin T (5th) Once 14 ng/L (0-15)
[2023-02-18] MEDS: meropenem 1,000 MG in sodium chloride 0.9% (plus) 50 ML 100 MG IV ×3 (04:29→19:21)
[2023-02-18] MEDS: dextrose 5%-sod chloride 0.9% 1,000 ML 75 ML IV ×2 (04:34→18:32)
[2023-02-18] MEDS: vancomycin 1,250 MG/250 ML PIGGYBACK 250 MG IV (05:24)
[2023-02-18] MEDS: acetaminophen 325 mg Tablet 650 MG PO ×3 (05:34→22:54)
--- OUTSIDE RECORDS SUMMARY | 2023-02-18 06:29 | XMS_ITS | Patient Health Record ---
Author Name Unknown Organization [facility] Address [address] [place] [address] Care Team Providers Care Vault Keeper Name Role Phone Umana, Scotty Primary Care Provider Jay Mata Unavailable [phone] Rajiv Castañeda Unavailable [phone] ALLERGIES No Known Allergies RESULTS Component Value Reference Range Notes UA Without Micro-Auto [id number] Reviewed date:03/03/2022 08:37:50 AM Interpretation: Performing Lab: Notes/Report: Color yellow Clarity slightly cloudy Glucose - Bili - Ketones - Sp [place] 1.025 Blood 3+ pH 6.0 Protein trace Urobili - Nitrites - Leukocytes 1+ US Renal w/bladder-[id number] Reviewed date:06/20/2022 01:28:01 PM Interpretation: Performing Lab: Notes/Report: See Below For Report US Renal w/bladder Diagnosis Description: Calculus of kidney Retrograde Urography Reviewed date:06/20/2022 01:28:10 PM Interpretation: Performing Lab: Notes/Report: See Below For Report Retrograde Urography Stone Analysis ( Calculi) 82 365 Reviewed date:03/02/2022 09:14:58 AM Interpretation: Performing Lab: Notes/Report: Calculi Mass 14 Calculi Description See Note Specimen consists of one brown calculus. The total weight is 14 mg. Calculi Composition See Note Calculi composed primarily of calcium oxalate monohydrate. INTERPRETIVE INFORMATION: Calculi (Stone) analysis Calculi are the products of physiological processes that yield crystalline compounds in a matrix of biological compounds and blood. Matrix components are not reported. The clinically significant crystalline components identified in calculi specimens are reported. Gross description may not be consistent with composition determined by FTIR analysis. Performed By: [facility] [address] [place] [id number] Correctional Classification Counselor: Lopez España MD, PhD REASON FOR REFERRAL No Information MEDICATIONS Medication SIG (Take, Route, Fr equency, Duration) Notes Start Date End Date Status Flomax 0.4 MG 1 capsule Orally Once a day Not-Taking SOCIAL HISTORY Tobacco Use: Social History Observation Description Date Details (start date - stop date) Unknown Sex Assigned At : Social History Observation Description Sex Assigned At Unknown Tobacco Use/Smoking Question Answer Notes Are you a Uses tobacco in other forms Additional Findings: Tobacco User Chews fine cut tobacco Alcohol Screen (Audit-C) Question Answer Notes Did you have a drink containing alcohol in the p ast year? No Points 0 Interpretation Negative PROBLEMS Problem Type ICD Code Onset Dates Problem Status W/U Status Risk SNOMED Code Notes Problem Calculus of kidney (N20.0) Active confirmed Calculus of kid laura (90170642) Problem Benign prostatic hyperplasia with lower urinary tract symptoms (N40.1) Active confirmed 265610440 Problem Nephrolithiasis (N20.0) Active confirmed Nephrolithiasis (79053909) Problem Microscopic hematuria (R31.29) Active confirmed Microscop ic hematuria (822843115) Problem Bilateral renal cysts (N28.1) Active confirmed Renal cyst (610314329) Problem Right ureteral stone (N20.1) Active confirmed Ureteric stone (86689959) Problem History of nephrolithiasis (Z87.442) Active confirmed History of nephrolithiasis (323213020) Problem 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) Active confirmed [id number] Problem Right flank pain (R10.9) Active confirmed Right flank daisy n (256287513) VITAL SIGNS Heart Rate 78 /min 04/13/2022 Temperature 98.0 degrees Fahrenheit 04/13/2022 Height-cm 170.18 cm 04/13/2022 Blood pressure diastolic 99 mm Hg 04/13/2022 Weight-kg 72.57 kg 04/13/2022 Height 67 in 04/13/2022 Blood pressure systolic 183 mm Hg 04/13/2022 Weight 160 lbs 04/13/2022 BMI 25.06 kg/m2 04/13/2022 Encounters Encounter Location Date Provider Diagnosis [facility] [address] [place] [id number] 02/20/2022 Rajiv Castañeda Pre-op testing Z01.8 [facility] [address] [address] 02/24/2022 Jay Pevril Nephrolithiasis N20. 0 ; Benign prostatic hyperplasia with lower urinary tract symptoms N40.1 ; Other retention of urine R33.8 ; Other stricture of urethral meatus in male N35.811 and Encounter for fitting and adjustment of urinary device Z46.6 [facility] [address] [facility] [address] [place] [address] 03/02/2022 Rajiv Castañeda Nephrolithiasis N20. 0 ; Benign prostatic hyperplasia with lower urinary tract symptoms N40.1 ; Other stricture of urethral meatus in male N35.811 ; Foreign body in other parts of genitourinary tract, initial encounter T19.8XXA and History of nephrolithiasis Z87.442 [facility] [address] [address] 04/13/2022 Jay Pevril Nephrolithiasis N20. 0 ; Benign prostatic hyperplasia with lower urinary tract symptoms N40.1 ; Other stricture of urethral meatus in male N35.811 ; Foreign body in other parts of genitourinary tract, initial encounter T19.8XXA and History of nephrolithiasis Z87.442 [facility] [address] [address] 10/19/2022 Rajiv Castañeda ASSESSMENTS Encounter Date Diagnosis Assessment Notes Treatment Notes Treatment Clinical Notes 02/20/2022 Pre-op testing (ICD-10 - Z01.818) 02/24/2022 Benign prostatic hyperplasia with lower urinary tract symptoms (ICD-10 - N40.1) 02/24/2022 Nephrolithiasis (ICD-10 - N20.0) 03/02/2022 Benign prostatic hyperplasia with lower urinary tract symptoms (ICD-10 - N40.1) 03/02/2022 Nephrolithiasis (ICD-10 - N20.0) 04/13/2022 Nephrolithiasis (ICD-10 - N20.0) 03/02/2022 Other stricture of urethral meatus in male (ICD-10 - N35.811) 04/13/2022 Benign prostatic hyperplasia with lower urinary tract symptoms (ICD-10 - N40.1) 02/24/2022 Other retention of urine (ICD-10 - R33.8) 02/24/2022 Other stricture of urethral meatus in male (ICD-10 - N35.811) 03/02/2022 Foreign body in othe r parts of genitourinary tract, initial encounter (ICD-10 - T19.8XXA) 04/13/2022 Other stricture of urethral meatus in male (ICD-10 - N35.811) 04/13/2022 Foreign body in othe r parts of genitourinary tract, initial encounter (ICD-10 - T19.8XXA) 03/02/2022 History of nephrolithiasis (ICD-10 - Z87.442) 02/24/2022 Encounter for fittin g and adjustment of urinary device (ICD-10 - Z46.6) 04/13/2022 History of nephrolithiasis (ICD-10 - Z87.442) 03/02/2022 Other 1. Discussed the possibility of ureteral spasm following stent removal and the need for hydration and analgesic support as well as the fact that it should resolve in the next 24-48 hours. 2. Next follow up in 6 weeks with a KUB and renal ultrasound for residual calcifications or hydronephrosis respectively. PLAN OF TREATMENT Pending Test Test Name Order Date Electrocardiogram 12 Lead Tracing-[id number] 02/17/2022 Abdomen [id number] 03/02/2022 Future Test Test Name Order Date Abdomen [id number] 04/13/2022 Insurance Providers Payer Name Payer Address Payer Phone Subscriber Number Group Number Insured Name Patient Relationship to Insured Coverage Start Date Coverage End Date [facility] Medicare Advantage PPO [address] [address] [place] [address] [phone] [id number] tSuart Horton Self - patient is the insured MEDICAL (GENERAL) HISTORY Medical History History ICD Code nephrolithiasis Surgical History Surgery Date(Month/Year) hernia surgery 2001 cysto/stone extraction R / king placeme nt 02/20/22
--- NOTE | 2023-02-18 07:03 | PC.PHAR ---
Stefano Initial Dosing Patient Information Penology Teacher Sex M M/F Last Name Clifford Calculated AGE 82 years First Name Stuart ANN Ht 66 inches : 1940 ABW 77.11 kg Location: ED-13 IBW 63.8 kg If loading dose given: DW 77.11 kg Loading DOSE: 1250 mg SCr 0.8 mg/dl This Dose = 16.2 mg/kg CrCl 65.4 ml/min 1st dose Cmax: 21.0 mcg/ml Vd 57.8325 liters Time elapsed: 17.0 hrs Ke 0.059 hrs-1 Serum Conc. = 7.7 mcg/ml t1/2 12 hrs Hrs until 20 mcg/ml 1.8 hrs Hrs until 15 mcg/ml 6.7 hours Hrs until 10 mcg/ml 13.6 hours Dose Tau (Freq) Levels expected Standard 1250 18 Cmax 31.3 Targets 16.21 17.7 Cpeak 29.5 25 to 40 mg/kg hours Cmin 12.2 10 to 20
--- NOTE | 2023-02-18 07:36 | PC.PHAR ---
FAMILY STATES PT STOPPED TAKING AUGMENTIN 875 WRITTEN 02/13/23 DUE TO CURRENT SYMPTOMS. 02/18/26
--- NOTE | 2023-02-18 08:10 | CT_ITS ---
WS: [id number] CT CHEST, ABDOMEN, AND PELVIS TECHNIQUE: Noncontrast CT of the chest, abdomen, and pelvis with coronal and sagittal reformatted hortencia ges. CLINICAL INFORMATION: fever source evaluation COMPARISON: None. DLP: 678.[address] scans at [facility] use at least one of these dose optimization techniques: automated e xposure control; mA and/or kV adjustment per patient size (includes targeted exams where dose is matc hed to clinical indication); or iterative reconstruction. CT CHEST: Lungs are well aerated. Bibasilar atelectasis. No focal pneumonia or pleural fluid. No acute appearin g pulmonary infiltrates. Normal caliber thoracic aorta. Coronary calcification. No mediastinal or hil ar lymphadenopathy. No axillary lymphadenopathy. Mild thoracic curve. CT ABDOMEN AND PELVIS: Residual contrast from recent CTA head neck. Noncontrast liver is normal. Tiny amount of sludge in the gallbladder. Tiny esophageal hiatal hernia. Fatty atrophy of the pancreas. Normal caliber abdominal aorta. Adrenal glands are normal. Bilateral renal cysts. Residual contrast in the ureters. Up catheter. Sigmoid diverticulosis. No evidence of acute diverticulitis. No free fluid in the abdomen or pelvis. IMPRESSION: 1. No acute findings in the chest abdomen or pelvis. 2. Tiny amount of sludge in the gallbladder. 3. Up catheter in place. 4. Sigmoid diverticulosis. No evidence of acute diverticulitis.
[2023-02-18] MEDS: pantoprazole DR 40 mg Tablet PO (08:59)
--- NOTE | 2023-02-18 09:53 | PC.NURSE ---
ATIVAN MDV PRN ORDER PLACED DUE TO PYXIS USE.
[2023-02-18] MEDS: LORazepam 2 mg/mL INJ 10 mL MDV 0.5 MG IVP (09:57)
--- NOTE | 2023-02-18 11:19 | MR_ITS ---
WS: [id number] MRI BRAIN WITHOUT CONTRAST HISTORY: Meningitis concern COMPARISON: CT head 02/17/2023. TECHNIQUE: Diffusion imaging, multiplanar T1, T2 and FLAIR imaging obtained. Fast imaging protocol ut ilized. Patient with altered mental status and difficulty holding still. No evidence for acute infarct or hemorrhage. [place]-white matter differentiation is normal. Very mild atrophy and small vessel ischemic disease. Ventricles and extra-axial spaces are normal. No inferior displacement of cerebellar tonsils. The sella turcica and pituitary gland are unremarkabl e. Dural venous sinuses and [place] of [place] demonstrate no abnormality on this unenhanced studies. Paranasal sinuses: Clear. Mastoid air cells: Normal. Calvarium and scalp: Intact. IMPRESSION: 1. No acute infarct and no hemorrhage. 2. Mild atrophy and small vessel ischemic disease.
--- NOTE | 2023-02-18 11:19 | W.PM.EVENTAC ---
Event Note Event Note: No fever this morning Awaiting lumbar puncture today As per the patient seems to be back to his baseline He is not confused Able to communicate Patient is able to tell me his HPI Very pleasant cooperative Awake and alert GCS 15 No active signs of encephalitis or meningitis Krasinski Burzynski sign negative Maculopapular rash improving Abdomen soft S1, S2 Currently on room air Plan for LP today Continue antimicrobials Will follow-up with the CSF report I will let patient eat, for now I will keep him on pur?ed diet I will also request MRI head
[2023-02-18 11:24] LABS: CSF Mononuclear # 0.018 10^3/uL (50-90); Mononuclear WBC CSF % 90 % (50-90); Polynuclear Cells ,CSF # 0.002 10^3/uL (0-10); Polynuclear WBC CSF % 10 % (0-10); Red Blood Cell CSF 0 10^3/uL (0-0); White Blood Cell CSF 20 /uL (0-5)
[2023-02-18 11:32] LABS: Appearance CSF CLEAR (CLEAR); Color CSF COLORLESS (COLORLESS)
[2023-02-18 11:35] LABS: Glucose CSF 53 mg/dL (40-70); Total Protein CSF 114 mg/dL (15-45)
[2023-02-19] VITALS (55 sets, daily range): BP systolic 162–178; BP diastolic 78–102; PULSE 74–105; RESP 13–26; TEMP 37.1–39.1; O2SAT 92–95; BMI 27.9
[2023-02-19] MEDS: LORazepam 2 mg/mL INJ 1 mL 0.5 MG IVP (00:24)
[2023-02-19] MEDS: vancomycin 1,250 MG/250 ML PIGGYBACK 250 MG IV ×2 (00:24→17:18)
[2023-02-19] MEDS: haloperidol inj 5 mg/mL INJ 1 mL 1 MG IVP (01:44)
--- NOTE | 2023-02-19 02:51 | PC.NURSE ---
Patient pulling at tubes/wires, wanting to get out of bed. Gave PRN Ativan, did not resolve symptoms. Later gave PRN Haldol. Afre one hour family is still concerned about patients behavior. Spoke to Dr. Thompson, given orders for a one time dose of Zyprexa.
[2023-02-19] MEDS: water for injection-sterile 10 ML 2 ML (03:41)
[2023-02-19] MEDS: OLANZapine 10 mg VIAL 5 MG IM (03:41)
[2023-02-19] MEDS: meropenem 1,000 MG in sodium chloride 0.9% (plus) 50 ML 100 MG IV ×3 (03:58→22:14)
[2023-02-19 04:36] LABS: Basophils # 0.1 10^3/uL (0.0-0.1); Basophils % 0.5 %; Eosinophils # 0.2 10^3/uL (0.0-0.8); Eosinophils % 1.8 %; Hematocrit 40.8 % (37-53); Lymphocytes # 1.3 10^3/uL (0.8-4.8); Mean Corpuscular HGB Conc 33.8 g/dL (30-55); Mean Corpuscular Hemoglobin 31.8 pg (27-33); Mean Platelet Volume 10.8 fL (7.4-10.4); Monocytes # 1.2 10^3/uL (0.2-0.9); Monocytes % 12.8 %; Neutrophils # 6.74 10^3/uL (1.8-7.7); Neutrophils % 70.4 %; Nucleated Red Blood Cells % 0 %; Platelet Count 141 10^3/cmm (157-399); Red Blood Count 4.34 10^6/uL (3.85-5.65); Red Cell Distribution Width 12.9 % (12.1-15.1); White Blood Count 9.58 10^3/uL (3.29-11.43)
[2023-02-19 05:00] LABS: Alanine Aminotransferase 14 U/L (0-41); Albumin Level 3.4 g/dL (3.5-5.2); Alkaline Phosphatase 57 U/L (40-130); Anion Gap 15.2 (5-19); Aspartate Amino Transferase 20 U/L (0-40); Blood Urea Nitrogen 16 mg/dL (8-23); Calcium 8.2 mg/dL (8.5-10.5); Carbon Dioxide 23 mmol/L (22-29); Chloride 103 mmol/L (98-107); Globulin 2.5 g/dL (1.3-4.6); Glucose 90 mg/dL (65-115); Osmolality Calculated 287 mOsm/kg (285-295); Potassium 3.2 mmol/L (3.5-5.1); Sodium 138 mmol/L (136-145); Total Bilirubin 0.9 mg/dL (0.15-1.2); Total Protein 5.9 g/dL (6.6-8.7)
[2023-02-19] MEDS: dextrose 5%-sod chloride 0.9% 1,000 ML 75 ML IV ×2 (08:48→22:16)
[2023-02-19] MEDS: pantoprazole DR 40 mg Tablet PO (08:49)
[2023-02-19] MEDS: acetaminophen 325 mg Tablet 650 MG PO ×2 (08:52→22:55)
--- NOTE | 2023-02-19 09:17 | P.PN_ITS ---
Subjective 2 Subjective: Patient has meningitis Gram stain negative for any culture I will put patient on airborne isolation for now until herpes is ruled out Family has been notified Patient is still spiking fever As per the family patient was able to get some rest overnight otherwise he has been irritable and not able to sleep for more than few hours Vitals/I&O/Wt Last Vital Signs Temp 102.3 F H 02/19/23 08:00 Pulse 105 H 02/19/23 08:00 Resp 18 02/19/23 08:00 BP 175/102 02/19/23 08:00 Pulse Ox 94 02/18/23 21:00 O2 Del Method Room Air 02/18/23 18:31 02/18/23 02/19/23 02/19/23 22:59 06:59 14:59 Intake Total 524.75 / 1198.25 576 / 1774.25 1000 / 1000 Balance 524.75 / 298.25 576 / 874.25 1000 / 1000 Weight last 48 hrs Weight 78.471 kg Weight 78.471 kg Weight 77.111 kg Physical Exam 2 Narrative: Patient is laying supine Drowsy and fatigue Febrile episode noted this morning Patient is able to answer questions Euvolemic Concentrated urine in the Up catheter in the bag Abdomen soft Kernig's and Brudzinski's sign still negative Urinary Catheter Management: Up: Cath Placed During This Visit: yes Reason for Continuing Indwelling Catheter: Other Urinary Catheter Date of Insertion: 02/18/23 Urinary Catheter Time of Insertion: 03:15 Data 02/19/23 04:20 02/19/23 04:20 Micro: Microbiology 02/18/23 10:30 Gram Stain - Final Cerebrospinal Fluid Cryptococcal Antigen (CSF) - Final A&P Assessment and plan (1) Meningoencephalitis: (2) Exanthematous infection: (3) Altered mental status: Qualifiers: Altered mental status type: disorientation Qualified Code(s): R41.0 - Disorientation, unspecified (4) Fever: Plan Fever with altered mental status High WBC count noted on LP High protein Will put patient on airborne isolation until herpes encephalitis has been ruled out Currently patient is on acyclovir and antibiotics Still spiking fever Will test with Dr. 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
--- NOTE | 2023-02-19 09:21 | PC.CHAP ---
Pastoral Care Encounter/Spiritual Assessment Type of Contact [] Declined voice engineer visit [] Patient/Family/Request visit [] Outpatient visit [] Follow-up visit [] Physician referral [] Code/Alert [] Routine visit [] Staff referral [] Actively dying [] Patient sleeping [] Family support [] [] Out of room [] Palliative care [] [] Receiving care in room [] Pre-surgical visit [] Trauma [] Long length of stay [] ICU visit [x] Other:Contact precautions. No visit. Relational/Emotional Strength [] Patient feels connected with others/family/visitors/staff [] Distress [] Loneliness/isolation [] Abandonment Spirituality of Patient [] Person of Rin [] Attends Shinto of their Rin [] Believes in Prayer [] Reads Bible or Worship materials [] There are Spiritual issues to be addressed Deportation Officer Interventions [] Prayer [] Active listening [] Non-anxious presence [] Spiritual/emotional support [] Crisis/trauma care [] Spiritual counseling [] Bereavement support [] Provided bereavement packet [] Provided Bible/devotional materials [] Provided toy/stuffed animal, coloring book to patient or family member [] Provided Communion [] Anointing/[place] [] Salvation [] Completed spiritual assessment [] Other: Impact on Illness or Injury [] Angry [] Fearful [] Anxious [] Often cries [] Exhaustion [] Unable to work [] Unable to attend nondenominational [] Unable to walk/stand [] Unable to read [] Unable to drive [] Unable to eat/drink [] Unable to sleep [] Unable to be with family [] Patient intubated [] Other: Summary Time spent with patient
--- NOTE | 2023-02-19 11:30 | PC.SOCIAL ---
IMM Update pg 2 of IMM updated and reviewed w/ patients family. Copy provided and copy dated, initialed and placed in chart.
--- NOTE | 2023-02-19 11:42 | PC.NURSE ---
transferred to room 266 (private room) via bed...report given to amberly limon.
[2023-02-19] MEDS: lidocaine 2% viscous 1.667 ML, diphenhydrAMINE oral liq 4.165 MG, aluminum-mag hydrox-s... MUCOUS MEM (15:29)
[2023-02-19] MEDS: hyDRALAzine 20 mg/mL INJ 1 mL 10 MG IVP (18:25)
[2023-02-20] VITALS (8 sets, daily range): BP systolic 133–167; BP diastolic 72–86; PULSE 84–103; RESP 16–18; TEMP 36.7–37.5; O2SAT 93–96
[2023-02-20 05:28] LABS: Basophils # 0.1 10^3/uL (0.0-0.1); Basophils % 0.5 %; Eosinophils # 0.2 10^3/uL (0.0-0.8); Eosinophils % 1.9 %; Hematocrit 41.1 % (37-53); Lymphocytes # 1.8 10^3/uL (0.8-4.8); Lymphocytes % 16.9 %; Mean Corpuscular HGB Conc 34.1 g/dL (30-55); Mean Corpuscular Hemoglobin 31.5 pg (27-33); Mean Corpuscular Volume 92.4 fl (82-101); Mean Platelet Volume 11.2 fL (7.4-10.4); Monocytes # 1.3 10^3/uL (0.2-0.9); Neutrophils # 7.34 10^3/uL (1.8-7.7); Neutrophils % 68.1 %; Nucleated Red Blood Cells % 0 %; Platelet Count 187 10^3/cmm (157-399); Red Blood Count 4.45 10^6/uL (3.85-5.65); Red Cell Distribution Width 12.8 % (12.1-15.1); White Blood Count 10.77 10^3/uL (3.29-11.43)
[2023-02-20 05:51] LABS: Anion Gap 14.9 (5-19); Blood Urea Nitrogen 14 mg/dL (8-23); Carbon Dioxide 23 mmol/L (22-29); Chloride 107 mmol/L (98-107); Glucose 112 mg/dL (65-115); Osmolality Calculated 295 mOsm/kg (285-295); Sodium 142 mmol/L (136-145)
[2023-02-20 05:54] LABS: Potassium 2.9 mmol/L (3.5-5.1)
[2023-02-20] MEDS: meropenem 1,000 MG in sodium chloride 0.9% (plus) 50 ML 100 MG IV ×3 (06:05→22:23)
[2023-02-20] MEDS: pantoprazole DR 40 mg Tablet PO (08:55)
[2023-02-20] MEDS: potassium chloride ER 20 mEq Tablet 40 MEQ PO (09:57)
--- NOTE | 2023-02-20 12:14 | P.PN_ITS ---
Subjective 2 Subjective: Patient is doing remarkably well today Awake and alert Sitting in a recliner Will remove Up catheter Family is happy with his progress as well As per the family patient had a very restful night No fever this morning Vitals/I&O/Wt Last Vital Signs Temp 98.1 F 02/20/23 11:45 Pulse 90 02/20/23 11:45 Resp 16 02/20/23 11:45 BP 159/86 02/20/23 11:45 Pulse Ox 95 02/20/23 11:45 O2 Del Method Room Air 02/19/23 16:00 02/19/23 02/20/23 02/20/23 22:59 06:59 14:59 Intake Total 1516 / 2832 316 / 3148 300 / 300 Balance 1516 / 2832 316 / 3148 300 / 300 Weight last 48 hrs Weight 71.033 kg Weight 78.471 kg Weight 78.471 kg Physical Exam 2 Narrative: Sitting in a recliner Pleasant and cooperative No active signs of fluid overload S1, S2 Currently on room air Up catheter in place GCS 15 Nonfocal neuroexam No signs of confusion Urinary Catheter Management: Up: Cath Placed During This Visit: yes Reason for Continuing Indwelling Catheter: Other Urinary Catheter Date of Insertion: 02/18/23 Urinary Catheter Time of Insertion: 03:15 Data 02/20/23 05:14 02/20/23 05:14 Micro: Microbiology 02/18/23 03:53 Blood Culture - Preliminary Blood 02/18/23 03:50 Blood Culture - Preliminary Blood 02/18/23 10:30 Gram Stain - Final Cerebrospinal Fluid CSF Culture - Preliminary Cryptococcal Antigen (CSF) - Final A&P Assessment and plan (1) Exanthematous infection: (2) Meningoencephalitis: (3) Encephalopathy due to infection: (4) Encephalopathy: (5) Altered mental status: Qualifiers: Altered mental status type: disorientation Qualified Code(s): R41.0 - Disorientation, unspecified (6) Fever: Plan Meningoencephalitis CSF cultures negative to date Herpes DNA testing pending I will keep him on isolation and continue acyclovir until this is ruled out Even in absence of culture results we will keep treating him for aseptic meningitis possibility Patient has remarkably done well on current antiviral and antimicrobial coverage Will touch base with Dr. Thompson Remove Up catheter Change IV fluids to normal saline Hypokalemia: Repleted Metabolic encephalopathy: Improving on daily basis Had a family meeting as well Full code He may need one-to-one supervision as he tries to get up However at this point he is doing 90% of the work on his own, he got out of the bed and sit in a recliner without much assistance. 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
[2023-02-20] MEDS: vancomycin 1,250 MG/250 ML PIGGYBACK 250 MG IV (13:11)
[2023-02-20] MEDS: sodium chloride 0.9% 1,000 ML 30 ML IV (13:12)
[2023-02-20] MEDS: amlodipine 5 mg Tablet PO (13:12)
[2023-02-20] MEDS: lisinopril 10 mg Tablet PO (13:12)
[2023-02-21] VITALS: BP 147/79; PULSE 88; RESP 15; TEMP 36.6; O2SAT 95
[2023-02-21 04:00] VITALS: BP 167/85; PULSE 94; RESP 16; TEMP 37.2; O2SAT 95
[2023-02-21] MEDS: meropenem 1,000 MG in sodium chloride 0.9% (plus) 50 ML 100 MG IV ×3 (05:30→22:18)
[2023-02-21 05:45] VITALS: BMI 25.2
[2023-02-21 05:53] LABS: Magnesium 1.9 mg/dL (1.7-2.3)
[2023-02-21 06:07] LABS: Basophils # 0.1 10^3/uL (0.0-0.1); Basophils % 0.6 %; Eosinophils # 0.5 10^3/uL (0.0-0.8); Eosinophils % 4.8 %; Hematocrit 38.2 % (37-53); Lymphocytes # 1.6 10^3/uL (0.8-4.8); Lymphocytes % 14.5 %; Mean Corpuscular HGB Conc 33.8 g/dL (30-55); Mean Corpuscular Hemoglobin 31.5 pg (27-33); Mean Corpuscular Volume 93.2 fl (82-101); Mean Platelet Volume 11.1 fL (7.4-10.4); Monocytes # 1.1 10^3/uL (0.2-0.9); Monocytes % 9.7 %; Neutrophils # 7.61 10^3/uL (1.8-7.7); Neutrophils % 69.9 %; Nucleated Red Blood Cells % 0 %; Platelet Count 204 10^3/cmm (157-399); Red Cell Distribution Width 13.1 % (12.1-15.1); White Blood Count 10.86 10^3/uL (3.29-11.43)
[2023-02-21 06:25] LABS: Vancomycin Trough 11.2 ug/mL (10-15)
[2023-02-21 06:26] LABS: Anion Gap 12.1 (5-19); Blood Urea Nitrogen 17 mg/dL (8-23); Carbon Dioxide 24 mmol/L (22-29); Chloride 105 mmol/L (98-107); Glucose 100 mg/dL (65-115); Osmolality Calculated 288 mOsm/kg (285-295); Potassium 3.1 mmol/L (3.5-5.1); Sodium 138 mmol/L (136-145)
[2023-02-21] MEDS: vancomycin 1,250 MG/250 ML PIGGYBACK 250 MG IV (06:30)
[2023-02-21 08:00] VITALS: BP 153/83; PULSE 81; RESP 16; TEMP 36.7; O2SAT 94
[2023-02-21] MEDS: potassium chloride ER 20 mEq Tablet 40 MEQ PO (08:33)
[2023-02-21] MEDS: pantoprazole DR 40 mg Tablet PO (08:34)
[2023-02-21] MEDS: lisinopril 10 mg Tablet PO (08:34)
[2023-02-21] MEDS: amlodipine 5 mg Tablet PO (08:34)
--- NOTE | 2023-02-21 11:41 | PM.PN ---
Subjective Subjective: Clinically improving Cultures negative Vitals/I&O/Wt Last Vital Signs Temp 98.0 F 02/21/23 08:00 Pulse 81 02/21/23 08:00 Resp 16 02/21/23 08:00 BP 153/83 02/21/23 08:00 Pulse Ox 94 02/21/23 08:00 O2 Del Method Room Air 02/21/23 08:00 02/20/23 02/21/23 02/21/23 22:59 06:59 14:59 Intake Total 316 / 2382 366 / 2748 250 / 250 Balance 316 / 2382 366 / 2748 250 / 250 Weight last 48 hrs Weight 71.033 kg Weight 71.033 kg Physical Exam Narrative: Patient is much better No fever or meningitis S1, S2 Currently NIH 0 No active signs of meningitis Abdomen soft Urinary Catheter Management: Up: Cath Placed During This Visit: yes, but has since been removed by the nurse Reason for Continuing Indwelling Catheter: Other Urinary Catheter Date of Insertion: 02/18/23 Urinary Catheter Time of Insertion: 03:15 Date Urinary Catheter Removed: 02/20/23 Time Urinary Catheter Discontinued: 11:30 Data 02/21/23 05:50 02/21/23 05:50 Micro: Microbiology 02/18/23 10:30 Gram Stain - Final Cerebrospinal Fluid CSF Culture - Preliminary Cryptococcal Antigen (CSF) - Final 02/18/23 03:53 Blood Culture - Preliminary Blood 02/18/23 03:50 Blood Culture - Preliminary Blood A&P Assessment and plan (1) Exanthematous infection: (2) Meningoencephalitis: (3) Altered mental status: Qualifiers: Altered mental status type: disorientation Qualified Code(s): R41.0 - Disorientation, unspecified (4) Fever: Plan Plan to discharge by tomorrow All 10 days of antibiotics and Valtrex Clinically much better Cultures negative Aseptic meningitis Full code Up cath removed Attestations Medical Necessity Statement*: GRECIA chavez Coding Level of Care Code Acute Code for [facility] Diagnoses Exanthematous infection B99.9 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
[2023-02-21 12:00] VITALS: BP 119/70; PULSE 90; RESP 16; TEMP 36.6; O2SAT 93
[2023-02-21 15:44] LABS: HSV 1 DNA NOT DETECTED; HSV 2 DNA NOT DETECTED; HSV Source CEREBROSPINAL FLUID
[2023-02-21 16:00] VITALS: BP 143/80; PULSE 83; RESP 18; TEMP 36.6; O2SAT 96
[2023-02-21 20:00] VITALS: BP 150/82; PULSE 87; RESP 20; TEMP 36.8; O2SAT 96
[2023-02-22] VITALS: BP 149/84; PULSE 79; RESP 18; TEMP 36.6; O2SAT 96
[2023-02-22] MEDS: vancomycin 1,250 MG/250 ML PIGGYBACK 250 MG IV (00:57)
[2023-02-22 04:00] VITALS: BP 145/79; PULSE 84; RESP 16; TEMP 36.9; O2SAT 96
[2023-02-22] MEDS: meropenem 1,000 MG in sodium chloride 0.9% (plus) 50 ML 100 MG IV (06:13)
[2023-02-22] MEDS: sodium chloride 0.9% 1,000 ML 30 ML IV (06:13)
[2023-02-22 08:00] VITALS: BP 144/87; PULSE 77; RESP 16; TEMP 36.8; O2SAT 95
--- NOTE | 2023-02-22 08:16 | P.DS_ITS ---
Discharge Providers Date of Admission: 02/18/23 03:12 Date of Discharge: February 22, 2023 Attending Provider at Admission: Christi Thompson MD Attending Provider at Discharge: Belia Mcconnell MD Primary Care Provider: Scotty Umana DO Diagnoses at Discharge Discharge Diagnosis (1) Exanthematous infection: Status: Acute (2) Meningoencephalitis: Status: Acute (3) Altered mental status: Status: Acute Qualifiers: Altered mental status type: disorientation Qualified Code(s): R41.0 - Disorientation, unspecified (4) Fever: Status: Acute Reason for Visit Reason for Visit: AMS Hospital Course Hospital Course 82-year male who was admitted for management evaluation of confusion associated with fever, there was concern for meningoencephalitis from the beginning he was put on acyclovir and broad-spectrum antibiotics, his fever subsided within the next 48 hours patient confusion improved as well, 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 At the time of discharge I have prescribed Valtrex 1 g 3 times daily Please note patient was suffering from upper respiratory tract infection symptoms for about 2 weeks before his arrival in the ER, he developed maculopapular rash to Augmentin. At the time of discharge I will give him Valtrex and levofloxacin. He remained hypertensive I have added amlodipine along lisinopril Physical Exam Narrative: NIH 0 GCS 15 Rash has disappeared No signs of shingles Pleasant and cooperative Awake alert Currently on room air Urinary Catheter Management: Up: Cath Placed During This Visit: yes, but has since been removed by the nurse Reason for Continuing Indwelling Catheter: Other Urinary Catheter Date of Insertion: 02/18/23 Urinary Catheter Time of Insertion: 03:15 Date Urinary Catheter Removed: 02/20/23 Time Urinary Catheter Discontinued: 11:30 Discharge Data Studies Completed and Pending Completed Studies During Hospitalization Category Date Time Status CT chest abdomen pelvis [[place] [id number] Cat Scan 02/18/23 08:10 Completed ] Routine CT head wo con* [id number] Stat Cat Scan 02/17/23 18:44 Completed CTA head neck [CT angio headneck* [id number]] Stat Cat Scan 02/17/23 19:22 Completed FL guided lumbarpunc dx* [id number] Routine Exams 02/18/23 03:12 Completed MR head wo con* [id number] Routine MRI 02/18/23 11:19 Completed Pending at discharge Category Date Time Status Blood Cultures ([facility]) Routine Lab 02/18/23 03:50 Results Blood Cultures ([facility]) Routine Lab 02/18/23 03:53 Results VDRL on CSF Routine Lab 02/18/23 10:30 Received Radiology Impressions Head CT 02/17/23 18:44 IMPRESSION: Negative for intracranial hemorrhage or mass effect. Head/Neck CTA 02/17/23 19:22 IMPRESSION: 1. No large vessel high-grade stenosis or occlusion. 2. Advanced diffuse vascular calcification noted, especially in both distal ICAs. IMPRESSION: No stenosis or occlusion. REFERENCES: NASCET CRITERIA. The degree of stenosis in the cervical segment of the internal carotid artery is based on NASCET criteria. Normal is no stenosis. Mild is less than 50% stenosis. Moderate is 50-69% stenosis. Severe is 70% to 99% stenosis. Total occlusion is no detectable patent lumen. Laboratory Results WBC 10.86 10^3/uL (3.29-11.43) 02/21/23 05:50 RBC 4.10 10^6/uL (3.85-5.65) 02/21/23 05:50 Hgb 12.90 g/dL (11.27-16.99) 02/21/23 05:50 Hct 38.2 % (37-53) 02/21/23 05:50 MCV 93.2 fl (82-101) 02/21/23 05:50 MCH 31.5 pg (27-33) 02/21/23 05:50 MCHC 33.8 g/dL (30-55) 02/21/23 05:50 RDW 13.1 % (12.1-15.1) 02/21/23 05:50 Plt Count 204 10^3/cmm (157-399) 02/21/23 05:50 MPV 11.1 fL (7.4-10.4) H 02/21/23 05:50 Neut % (Auto) 69.9 % 02/21/23 05:50 Lymph % (Auto) 14.5 % 02/21/23 05:50 [place] % (Auto) 9.7 % 02/21/23 05:50 Eos % (Auto) 4.8 % 02/21/23 05:50 Baso % (Auto) 0.6 % 02/21/23 05:50 Neut # (Auto) 7.61 10^3/uL (1.8-7.7) 02/21/23 05:50 Lymph # (Auto) 1.6 10^3/uL (0.8-4.8) 02/21/23 05:50 [place] # (Auto) 1.1 10^3/uL (0.2-0.9) H 02/21/23 05:50 Eos # (Auto) 0.5 10^3/uL (0.0-0.8) 02/21/23 05:50 Baso # (Auto) 0.1 10^3/uL (0.0-0.1) 02/21/23 05:50 Nucleated RBC % (auto) 0 % 02/21/23 05:50 Nucleated RBCs # 0.0 /100WBC 02/21/23 05:50 ESR 15 mm/hr (0-10) H 02/17/23 18:44 Sodium 138 mmol/L (136-145) 02/21/23 05:50 Potassium 3.1 mmol/L (3.5-5.1) L 02/21/23 05:50 Chloride 105 mmol/L (98-107) 02/21/23 05:50 Carbon Dioxide 24 mmol/L (22-29) 02/21/23 05:50 Anion Gap 12.1 (5-19) 02/21/23 05:50 BUN 17 mg/dL (8-23) 02/21/23 05:50 Creatinine 0.8 mg/dL (0.7-1.2) 02/21/23 05:50 GFR Calculation Not Reportable 02/21/23 05:50 Glucose 100 mg/dL (65-115) 02/21/23 05:50 Calculated Osmolality 288 mOsm/kg (285-295) 02/21/23 05:50 Lactic Acid 1.1 mmol/L (0.5-2.2) 02/17/23 18:44 Calcium 8.0 mg/dL (8.5-10.5) L 02/21/23 05:50 Magnesium 1.9 mg/dL (1.7-2.3) 02/21/23 04:26 Total Bilirubin 0.9 mg/dL (0.15-1.2) 02/19/23 04:20 AST 20 U/L (0-40) 02/19/23 04:20 ALT 14 U/L (0-41) 02/19/23 04:20 Alkaline Phosphatase 57 U/L (40-130) 02/19/23 04:20 Troponin T 5th Gen ng/L 14 ng/L (0-15) 02/17/23 18:44 C-Reactive Protein 59.4 mg/L (0.0-4.9) H 02/17/23 18:44 Total Protein 5.9 g/dL (6.6-8.7) L 02/19/23 04:20 Albumin 3.4 g/dL (3.5-5.2) L 02/19/23 04:20 Globulin 2.5 g/dL (1.3-4.6) 02/19/23 04:20 Procalcitonin 0.19 ng/mL (0-0.5) 02/17/23 18:44 TSH 4.30 uIU/mL (0.27-4.20) H 02/17/23 18:44 Urine Color Yellow (Yellow) 02/17/23 21:00 Urine Appearance Clear (CLEAR) 02/17/23 21:00 Urine pH 5 (5-7) 02/17/23 21:00 Ur Specific [place] 1.020 (1.005-1.030) 02/17/23 21:00 Urine Protein Neg (Negative) 02/17/23 21:00 Urine Glucose (UA) Norm (Normal) 02/17/23 21:00 Urine Ketones 2+ (Negative) H 02/17/23 21:00 Urine Blood 2+ (Negative) H 02/17/23 21:00 Urine Nitrate Negative (Negative) 02/17/23 21:00 Urine Bilirubin Neg (Negative) 02/17/23 21:00 Urine Urobilinogen Neg mg/dL (Negative) 02/17/23 21:00 Ur Leukocyte Esterase Negative (Negative) 02/17/23 21:00 Urine RBC 0-4 /hpf (0-2) H 02/17/23 21:00 Urine WBC None /hpf (0-5) 02/17/23 21:00 Ur Squamous Epith Cells None /hpf (0-5) 02/17/23 21:00 Amorphous Sediment Not Reportable 02/17/23 21:00 Urine Bacteria Trace /hpf (NONE) 02/17/23 21:00 Urine Mucus 2+ /hpf 02/17/23 21:00 CSF Appearance Clear (CLEAR) 02/18/23 10:30 CSF Color Colorless (COLORLESS) 02/18/23 10:30 CSF WBC 20 /uL (0-5) H 02/18/23 10:30 CSF RBC 0 10^3/uL (0-0) 02/18/23 10:30 CSF Mononuclear # Auto 0.018 10^3/uL (50-90) L 02/18/23 10:30 CSF Mononuclear WBCs % 90 % (50-90) 02/18/23 10:30 CSF Polynuclear WBCs # 0.002 10^3/uL (0-10) 02/18/23 10:30 CSF Polynuclear WBCs % 10 % (0-10) 02/18/23 10:30 CSF Glucose 53 mg/dL (40-70) 02/18/23 10:30 CSF Total Protein 114 mg/dL (15-45) H 02/18/23 10:30 Vancomycin Trough 11.2 ug/mL (10-15) 02/21/23 05:50 Herpes Simplex Source Cerebrospinal fluid 02/18/23 10:30 HSV 1 DNA Not detected 02/18/23 10:30 HSV 2 DNA Not detected 02/18/23 10:30 Vitals Last Vital Signs Temp 98.5 F 02/22/23 04:00 Pulse 84 02/22/23 04:00 Resp 16 02/22/23 04:00 BP 145/79 02/22/23 04:00 Pulse Ox 96 02/22/23 04:00 O2 Del Method Room Air 02/22/23 04:00 Discharge Plan Discharge Patient Disposition: Home Condition: Stable Prescriptions: New lisinopril 20 mg tablet 20 mg PO DAILY Qty: 60 3RF amlodipine 5 mg tablet 5 mg PO DAILY Qty: 60 4RF Valtrex 1 gram tablet 1,000 mg PO Q8H 10 Days Qty: 30 0RF levofloxacin 750 mg tablet 750 mg PO DAILY 5 Days Qty: 5 0RF Continued Acetaminophen Extra Strength 500 mg tablet 500 mg PO Q6H PRN (Reason: Pain) ibuprofen 600 mg tablet 600 mg PO Q6H PRN (Reason: Pain) Discharge Orders: Discharge Order (Routine); Ordered 02/22/23 Ordered By: Belia Mcconnell Referrals: Christi Thmopson MD [Hospitalist] - 7-10 days (We have notified your physician's clinic of the need for a follow-up appointment to be scheduled. If you have not heard from them within the next 2 business days, please call them directly. 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 for which she will get levofloxacin and Valtrex Levofloxacin 750 mg once daily Valtrex 1 g 3 times a day If you develop any rash please stop taking these medications Please do not take Augmentin which caused rash which she used before you came to the hospital Discharge Attestations Time Spent in Discharge Care*: greater than 30 min Quality Metrics Clinical Quality Measures [ No reported AMI, CVA or VTE this stay] Coding Level of Care Code Acute Code for g Fwd Diagnoses Exanthematous infection B99.9 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
[2023-02-22] MEDS: pantoprazole DR 40 mg Tablet PO (09:47)
[2023-02-22] MEDS: lisinopril 10 mg Tablet PO (09:47)
[2023-02-22] MEDS: potassium chloride ER 20 mEq Tablet 40 MEQ PO (09:47)
[2023-02-22] MEDS: amlodipine 5 mg Tablet PO (09:47)
[2023-02-22 11:23] VITALS: BP 144/87; PULSE 77; RESP 16; TEMP 36.8; O2SAT 95
--- NOTE | 2023-02-22 11:25 | PC.SOCIAL ---
Pg 2 IMM Explained to pt Pg 2 IMM. No questions voiced. Provided pt a copy. Initialed, dated, & timed a copy & placed in chart.
[2023-02-24 02:09] LABS: VDRL on CSF NON-REACTIVE
--- NOTE | 2023-02-25 13:16 | PC.NURSE ---
I received a call from patient's spouse concerned about his condition this morning. She states that yesterday was a good day and patient was up a lot, ate small amounts, and drank small amounts throughout the day. This morning, he is more tired and weaker. She states that he has already went back to bed to rest. She reports his BP is 126/64 and HR is in the 60s. She inquired about giving patient his Amlodipine 5 mg. I instructed her to administer the Amlodipine as it would not affect the BP and HR drastically. She states that they're also waiting on the results to see if patient's Meningitis is contagious. I reviewed labs and there were no pending results at this time. She denies patient having any increased confusion or other changes in mental status. I reviewed disease process with her and informed her that generalized weakness and increased tiredness were normal. I instructed her to encourage patient to eat and stay hydrated today and allow him to rest frequently. She verbalizes understanding. I spoke with Dr. Mcconnell and informed him of the above information and he is going to call and f/u as well.
== END 2023-02-22 11:25 | disposition home or self-care (01) | DRG 97 ==
LOC: ER 21:54 → ER IP 02-18 00:15 → CSU 02-18 16:09 → MEDSURG 02-19 11:17
PROVIDERS: Admitting Provider Student in an Organized Health Care Education/Training Program; Emergency Provider Internal Medicine; PCP Internal Medicine; Visit Provider Internal Medicine
DX: G04.90 Encephalitis and encephalomyelitis, unspecified (principal); G93.41 Metabolic encephalopathy; G62.9 Polyneuropathy, unspecified; E87.6 Hypokalemia; I10 Essential (primary) hypertension; B99.8 Other infectious disease
CPT/HCPCS: 36415; 51702; 62328; 70450; 70496; 70498; 70551; 71045; 71250; 74176; 80048; 80053; 80202; 80503; 81001; 82945; 83605; 83735; 84145; 84157; 84443; 84484; 85025; 85651; 86140; 86308; 86592; 87040; 87070; 87075; 87081; 87205; 87327; 87530; 87635; 87804; 87880; 89050; 92610; 93005; 96361; 96365; 96367; 96372; 96374; 96375; 96376; 99285; J0133; J0360; J1630; J1885; J2060; J2185; J3370; J3490; J7030; J7042; J7050; Q9967

== ENCOUNTER 2023-05-17 11:49 | Outpatient (CLI) | payer MEDICARE, SELFPAY ==
--- NOTE | 2023-05-17 12:00 | MR_ITS ---
WS: [id number] MRI HEAD WITH CONTRAST TECHNIQUE: Sagittal T1, T2 axial, T2 axial FLAIR, axial susceptibility weighted imaging, axial diffus ion weighted images, and coronal T2 images were obtained. Pre and post-T1 axial and post T1 coronal i mages. ADC and FSPGR images. CLINICAL INFORMATION: HX OF MENINGITIS COMPARISON: MRI 02/18/2023 FINDINGS: Interval development of partially restricted diffusion in the LEFT florez radiata with associated la minar necrosis and a small amount of enhancement LEFT basal ganglia compatible with subacute ischemia . Associated T2 signal abnormality. No mass effect or midline shift. Additional tiny faint punctate f oci of partially restricted diffusion involving the LEFT parietal lobe and LEFT parietal cortex suspi cious for acute to subacute ischemia. No significant enhancement in this area. Moderate small vessel changes. Moderate parenchymal volume loss. Normal posterior fossa. Normal vascu lar flow voids at the skull base. No extra-axial fluid collections. No evidence of mass or mass effec t. Paranasal sinuses and mastoid air cells are well aerated. Normal posterior nasopharynx. Normal opt ic chiasm and pituitary infundibulum. Mild symmetric atrophy temporal lobes and hippocampal formation s. Normal cavernous sinuses and Meckel's cave. IMPRESSION: 1. 1.4 cm focus of partially restricted diffusion with laminar necrosis and a tiny amount of enhance ment in the LEFT florez radiata extending to the lateral basal ganglia compatible with subacute ische alvino. No mass effect or midline shift. 2. Additional punctate tiny faint foci of partially restricted diffusion in the LEFT parietal lobe w ith a small amount of restricted diffusion in the LEFT parietal cortex suspicious for acute/subacute ischemia. 3. Moderate small vessel changes with moderate parenchymal volume loss. 4. No other acute findings.
[2023-05-17] MEDS: gadobenate dimeglumine 20 mL vial IV (12:49)
== END 2023-05-17 11:50 | disposition home or self-care (01) ==
LOC: RAD 11:51
PROVIDERS: PCP Electrodiagnostic Medicine; Visit Provider Family Medicine
DX: Z86.61 Personal history of infections of the central nervous system (principal); M87.88 Other osteonecrosis, other site; G31.89 Other specified degenerative diseases of nervous system
CPT/HCPCS: 70553; A9577

== ENCOUNTER 2023-06-29 11:27 | Outpatient (CLI) | payer MEDICARE, SELFPAY ==
--- NOTE | 2023-06-29 11:39 | USCV_ITS ---
Stuart Horton Age: 82 Gender: M : 1940 Exam Date: 06/29/2023 11:45 Ordering Phys: Damien Hahn DO Technologist: CT Exam Location: [facility] [place]_ Indication: cva Risk Factors: Previous Vascular Surgery: Right Brachial BP: / Left Brachial BP: / Right Left Velocity (cm/s) Spectral Plaque Velocity (cm/s) Spectral Plaque Syst/Diast Broadening Syst/Diast Broadening 94.60/ 18.80 Prox CCA 118.40/ 23.90 113.50/25.70 Mid CCA 122.80/ 29.50 120.30/30.80 Distal CCA 76.20 / 18.90 75.50/ 20.00 Prox ICA 60.50 / 22.90 91.90/ 25.50 Mid ICA 48.20 / 17.60 50.90/ 16.50 Distal ICA 49.60 / 17.80 90.70 ECA 120.70 0.80 ICA/CCA 0.80 Antegrade Vertebral Antegrade 32.80/ 7.70 cm/s 28.60/ 8.00 cm/s Bi Subclavian Bi 107.0 141.6 0 0 FINDINGS Comparison: none available. No significant elevation of systolic or diastolic velocities. Waveforms are normal. Mild diffuse intimal thickening and atherosclerosis at the bifurcations. Antegrade vertebral arteries. CONCLUSIONS Bilateral ICA stenosis less than 50%. No interval change in stenosis since prior exam. Dr. Tiffanie Monique DO (Electronically Signed) Final Date: 30 Jun 2023 10:15 S
--- NOTE | 2023-06-29 11:39 | USCV_ITS ---
Stuart Horton Age: 82 Gender: M : 1940 Exam Date: 06/29/2023 12:03 Ordering Phys: Damien Hahn DO Technologist: CT Exam Location: [facility] – [place]_ Indication: cva BP: 130 / 85 HR: 62 Rhythm: Sinus Technical Quality: Adequate MEASUREMENTS (Male / Female) Normal Values 2D ECHO LVOT Diameter 2.1 cm LV Ejection Fraction MOD 2C 69.3 % LV Ejection Fraction 2C AL 71.5 % LA Diameter 3.1 cm RA Systolic Volume 4C AL 19.5 ml RA Systolic Volume 4C MOD 18.8 ml LA Sys Volume AL 28.8 cm cubed LA Sys Volume Index AL 15.8 cm cubed/m squared Aorta at Sinotubular Diameter 2.5 cm IVC Diameter 1.8 cm M-MODE LA Ao Ratio MM 1.3 AV Cusp Separation MM 2.2 cm DOPPLER AV Peak Velocity 162.0 cm/s AV Area Cont Eq vti 2.8 cm squared AV Area Cont Eq pk 2.4 cm squared MV Peak Velocity 72.0 cm/s MV Area PHT 2.7 cm squared Mitral E to A Ratio 0.8 TV Peak Velocity 115.5 cm/s TR Peak Velocity 117.0 cm/s TR Peak Gradient 5.5 mmHg TV Peak E Velocity 91.0 cm/s Right Atrial Pressure 3.0 mmHg Pulmonary Artery Systolic Pressu 8.5 mmHg PV Peak Velocity 112.0 cm/s FINDINGS Left Ventricle Normal left ventricular size and systolic function, EF 71%. Grade I/IV diastolic dysfunction (abnormal relaxation filling pattern), normal to mildly elevated filling pressures. Right Ventricle The right ventricle is normal in size and function. Right Atrium The right atrium is normal in size. Left Atrium The left atrium is normal in size. Mitral Valve No gross abnormalities noted Aortic Valve Mild calcification of the aortic valve Tricuspid Valve No gross abnormalities noted Pulmonic Valve Mild pulmonary valve regurgitation. Pericardium Normal pericardium without effusion. Aorta Normal ascending aorta dimension. IVC Normal inferior vena cava. CONCLUSIONS Normal left ventricular size and systolic function, EF 71%. Grade I/IV diastolic dysfunction (abnormal relaxation filling pattern), normal to mildly elevated filling pressures. Mild calcification of the aortic valve. Mild pulmonary valve regurgitation. Estimated pulmonary artery peak systolic pressure within normal limits There is no pericardial effusion. There are no intracardiac masses. No similar previous studies are available for comparison Dr Danie Gan MD [facility] (Electronically Signed) Final Date: 01 Jul 2023 08:54 S
== END 2023-06-29 11:28 | disposition home or self-care (01) ==
LOC: RAD 11:29
PROVIDERS: PCP Electrodiagnostic Medicine; Visit Provider Electrodiagnostic Medicine
DX: I63.9 Cerebral infarction, unspecified (principal); I50.30 Unspecified diastolic (congestive) heart failure; I70.0 Atherosclerosis of aorta; I37.1 Nonrheumatic pulmonary valve insufficiency; I65.23 Occlusion and stenosis of bilateral carotid arteries
CPT/HCPCS: 93306; 93880

== ENCOUNTER → 2023-08-05 09:58 | Outpatient (BNVA) | payer MEDICARE, SELFPAY | PROVIDERS: PCP Electrodiagnostic Medicine; Visit Provider Nurse Practitioner Family | DX: D48.5 Neoplasm of uncertain behavior of skin (principal); L57.0 Actinic keratosis; D22.4 Melanocytic nevi of scalp and neck; L81.4 Other melanin hyperpigmentation; L57.8 Other skin changes due to chronic exposure to nonionizing radiation | CPT/HCPCS: 11102; 17000; 99213 ==

== ENCOUNTER → 2023-08-18 10:37 | Outpatient (BNVA) | payer MEDICARE, SELFPAY | PROVIDERS: PCP Electrodiagnostic Medicine; Visit Provider Psychiatry & Neurology Neurology | DX: R41.3 Other amnesia (principal) | CPT/HCPCS: 99203 ==

== ENCOUNTER → 2023-08-19 10:05 | Outpatient (BNVA) | payer MEDICARE, SELFPAY | PROVIDERS: PCP Electrodiagnostic Medicine; Visit Provider Dermatology | DX: C44.629 Squamous cell carcinoma of skin of left upper limb, including shoulder (principal); D48.5 Neoplasm of uncertain behavior of skin | CPT/HCPCS: 11102; 11603; 13121 ==

== ENCOUNTER → 2024-01-18 09:24 | Outpatient (BNVA) | payer MEDICARE, SELFPAY | PROVIDERS: PCP Electrodiagnostic Medicine; Visit Provider Nurse Practitioner Family | DX: D22.39 Melanocytic nevi of other parts of face (principal); L91.8 Other hypertrophic disorders of the skin; Z85.828 Personal history of other malignant neoplasm of skin; L82.0 Inflamed seborrheic keratosis; L53.8 Other specified erythematous conditions; L29.89 Other pruritus; L57.0 Actinic keratosis | CPT/HCPCS: 17000; 17110; 99213 ==

== ENCOUNTER → 2024-07-18 09:23 | Outpatient (BNVA) | payer MEDICARE, SELFPAY | PROVIDERS: PCP Electrodiagnostic Medicine; Visit Provider Nurse Practitioner Family | DX: D22.39 Melanocytic nevi of other parts of face (principal); L91.8 Other hypertrophic disorders of the skin; D36.14 Benign neoplasm of peripheral nerves and autonomic nervous system of thorax; L82.1 Other seborrheic keratosis; L57.8 Other skin changes due to chronic exposure to nonionizing radiation; L81.4 Other melanin hyperpigmentation; Z08 Encounter for follow-up examination after completed treatment for malignant neoplasm; Z85.828 Personal history of other malignant neoplasm of skin; L57.0 Actinic keratosis | CPT/HCPCS: 17000; 99213 ==

== ENCOUNTER → 2025-01-26 10:20 | Outpatient (BNVA) | payer MEDICARE, SELFPAY | PROVIDERS: PCP Electrodiagnostic Medicine; Visit Provider Nurse Practitioner Family | DX: D22.39 Melanocytic nevi of other parts of face (principal); D36.14 Benign neoplasm of peripheral nerves and autonomic nervous system of thorax; L82.1 Other seborrheic keratosis; L57.8 Other skin changes due to chronic exposure to nonionizing radiation; L81.4 Other melanin hyperpigmentation; Z08 Encounter for follow-up examination after completed treatment for malignant neoplasm; Z85.828 Personal history of other malignant neoplasm of skin; L30.9 Dermatitis, unspecified; L57.0 Actinic keratosis | CPT/HCPCS: 11104; 17000; 99214 ==

== ENCOUNTER → 2025-02-05 09:01 | Outpatient (BNVA) | payer MEDICARE, SELFPAY | PROVIDERS: PCP Electrodiagnostic Medicine; Visit Provider Nurse Practitioner Family | DX: L23.9 Allergic contact dermatitis, unspecified cause (principal) | CPT/HCPCS: 99213 ==